=== PATIENT | male | born 1940 | race Caucasian/White ===

== ENCOUNTER → 2019-08-21 13:57 | Outpatient (BNVA) | payer MEDICARE, SELFPAY | PROVIDERS: Family Provider Family Medicine; PCP Family Medicine | DX: I48.91 Unspecified atrial fibrillation (principal) | CPT/HCPCS: 85610 ==

== ENCOUNTER → 2019-09-23 10:14 | Outpatient (BNVA) | payer MEDICARE, SELFPAY | PROVIDERS: Family Provider Family Medicine; PCP Family Medicine; Visit Provider Internal Medicine Cardiovascular Disease | DX: I48.91 Unspecified atrial fibrillation (principal) | CPT/HCPCS: 85610 ==

== ENCOUNTER → 2019-10-01 11:19 | Outpatient (BNVA) | payer MEDICARE, SELFPAY | PROVIDERS: Family Provider Family Medicine; PCP Family Medicine; Visit Provider Internal Medicine Cardiovascular Disease | DX: I48.91 Unspecified atrial fibrillation (principal) | CPT/HCPCS: 85610 ==

== ENCOUNTER → 2020-06-28 10:09 | Outpatient (BNVA) | payer MEDICARE, SELFPAY | PROVIDERS: Family Provider Family Medicine; PCP Family Medicine; Visit Provider Internal Medicine | DX: Z79.01 Long term (current) use of anticoagulants (principal); I48.91 Unspecified atrial fibrillation | CPT/HCPCS: 85610 ==

== ENCOUNTER → 2020-07-07 10:09 | Outpatient (BNVA) | payer MEDICARE, SELFPAY | PROVIDERS: Family Provider Family Medicine; PCP Family Medicine; Visit Provider Internal Medicine | DX: I48.91 Unspecified atrial fibrillation (principal); Z79.01 Long term (current) use of anticoagulants | CPT/HCPCS: 85610 ==

== ENCOUNTER 2021-09-01 12:00 | Outpatient (CLI) | payer MEDICARE, SELFPAY ==
[2021-09-01 14:43] LABS: Reticulocyte % 1.9 % (0.5-2.0)
[2021-09-01 14:46] LABS: Basophils % 0.8 %; Eosinophils # 0.1 10^3/uL (0.0-0.8); Eosinophils % 1.3 %; Hematocrit 29.6 % (42.0-52.0); Hemoglobin 9.2 g/dL (11.7-16.6); Lymphocytes # 2.1 10^3/uL (0.8-4.8); Lymphocytes % 44.8 %; Mean Corpuscular HGB Conc 31.1 g/dL (30.0-36.0); Mean Corpuscular Hemoglobin 28.9 pg (28.0-34.0); Mean Corpuscular Volume 93.1 fl (80-94); Mean Platelet Volume 11.9 fL (7.4-10.4); Monocytes # 0.4 10^3/uL (0.2-0.9); Monocytes % 7.6 %; Neutrophils # 2.14 10^3/uL (1.8-7.7); Neutrophils % 45.3 %; Nucleated Red Blood Cells % 0 %; Platelet Count 127 10^3/cmm (130-400); Red Blood Count 3.18 10^6/uL (4.1-5.3); Red Cell Distribution Width 18.3 % (12.1-15.1); White Blood Count 4.7 10^3/uL (4.0-10.0)
[2021-09-01 15:22] LABS: Slide Review Slide Review Perform
[2021-09-01 15:26] LABS: Erythrocyte Sedimentation Rate 14 mm/hr (0-10)
--- NOTE | 2021-09-01 17:42 | ONC CON_ITS ---
Dr. Torrez New Patient Note Patient: Juan J Fuller Unit #: [id number]: 1940 Dicatated By: Rafael Torrez M.D.Date of Visit: Sep 01, 2021 Onc MED New Patient/Consult Referring Physician: Dr. Rufino Whaley M.D. Chief Complaint: Anemia. History of Present Illness: This is an 81-year-old man with moderately severe anemia. This patient has hypertension and coronary artery disease. He has associated ischemic cardiomyopathy, atrial fibrillation, and congestive heart failure. On his follow-up visit with Dr. Whaley in July he complained of increased weakness/fatigue. His CBC showed moderately severe anemia with hemoglobin 9.0 g and hematocrit 27.4%. The red cell indices were normal. The white blood cell count was low at 2900 with the differential showing 34% neutrophils, 52% lymphocytes, 10% monocytes, 1% eosinophils, and 1% basophil's. The platelet count was normal at 181,000. His B12 level was normal at 883 pg/mL. He has previously had mild anemia. In reviewing his records in [facility], his prior CBCs dating back to 2012 had consistently shown hemoglobin in the range of 11 to 12 g. On a previous study from October 2008 it was normal at 14.7 g. His most recent echocardiogram available in [facility] was done in February 2016. It showed an estimated left ventricular ejection fraction of 35 to 40%. He says his energy is not very good, and he feels that it has been getting worse. He is still able to do some light work. His ECOG score is 1. His appetite is not what it used to be. His weight is down a few pounds. He occasionally feels hot, and he thinks he has had fever, though it has not been documented. He has had some sweating at night, but not a lot, and only about once a week. He says his breathing is pretty good, though he is sometimes short of breath. He has just occasional cough. He does not complain of chest pain. He has no GI complaints other than some acid reflux. He takes Lanette-Barto as needed. Bladder function has been okay, though he says he occasionally has blood in the urine. He has no significant joint or bone pain. He does not complain of headache. He sometimes has dizziness. He has no focal neurologic symptoms. Past Medical History: His medical history includes anemia, atrial fibrillation, coronary artery disease, gastroesophageal reflux disease, hypertension, hypothyroidism, ischemic cardiomyopathy, mitral regurgitation, and pulmonary hypertension. Past Surgical History: His only srugery was a consists of coronary artery bypass in 2008. Medications: Euthyrox 1 Tablet (of 75 mcg) Oral daily, Furosemide 1 Tablet (of 40 mg) Oral daily, Metoprolol Tartrate 1 Tablet (of 50 mg) Oral b.i.d. Allergies: Meperidine HCl Social History: Mr. Fuller is . He is a non-smoker. He does not drink alcohol. Family History: He does not know what happened to his father. His mother in the custodial. He thinks she just wore out . He had 2 brothers. He thinks 1 had heart disease. He had 1 sister who apparently of cancer. Review Of Symptoms: Constitutional - He has weakness/fatigue, and his energy has been declining. He is still able to do some light work. Appetite is not what it used to be. His weight recently has been down a few pounds. He thinks he may have fever occasionally, as he sometimes feels hot. He has some night sweating, but not a lot, and only about once a week. ECOG score is 1, Eyes - No change in vision, ENMT - No hearing loss or tinnitus. No sinus congestion/drainage. No mouth sores. No sore throat or difficulty swallowing, Hematologic/Lymphatic - No abnormal bruising, Respiratory - His breathing is pretty good, but he is sometimes short of breath. He has just occasional cough. No pleuritic pain or hemoptysis, Cardiovascular - No angina pain. No palpitations, Gastrointestinal - No nausea or vomiting. He has some acid reflux, which he manages with Lanette-Barto as needed. No diarrhea or constipation. No blood in the stool or black stools, Genitourinary (M) - No dysuria. No urinary frequency. No urgency or incontinence. He occasionally has a little blood in the urine, Musculoskeletal - No significant joint or bone pain, Integumentary - No skin rash or other skin changes, Neurologic - No headache. He sometimes has dizziness. No numbness or tingling. No other focal neurologic symptoms, Psychiatric - No anxiety or depression. He occasionally takes a sleeping pill. Vital Signs: Performed on Sep 01, 2021 14:16: 5, 0, 24.11, 1.94 sq.m, 70 in, 99 %, 111 /min (HIGH), 16 /min, 122/84 mm(hg), 97.4 F (LOW), and 168.0 lbs (HIGH). Physical Examination: Constitutional - He appears somewhat weak generally, Eyes - Sclerae nonicteric. Conjunctivae clear, ENMT - No lesions noted in the oral cavity, Neck - No mass or thyromegaly, Hematologic/Lymphatic - No cervical, clavicular, or axillary adenopathy, Respiratory - Lungs sound clear with good air movement bilaterally, Cardiovascular - Heart rhythm is regular. There is no murmur, gallop, or rub noted, Abdomen - Soft and non-tender. Liver and spleen are not enlarged. There is no abdominal mass or ascites noted and there is no inguinal adenopathy, Back/Spine - No spine or CVA tenderness noted, Extremities - No edema. I am not able to palpate pedal pulses, Integumentary - No rashes. No suspicious skin lesions noted, Neurologic - No focal neurologic deficits noted. Problem List: 1. Moderately severe anemia and neutropenia. Etiology is uncertain. 2. Hypertension. 3. Coronary artery disease with previous coronary artery bypass surgery. 4. Ischemic cardiomyopathy/congestive heart failure. 5. Atrial fibrillation. 6. Pulmonary hypertension. 7. Hypothyroidism. 8. GERD. Problems Addressed with this Encounter and Plan: Patient with mild anemia of fairly longstanding duration presents now with moderately severe anemia and neutropenia. Etiology is uncertain, but with his B12 level being normal the clinical picture is most consistent with a myelodysplastic syndrome. The laboratory findings were reviewed with the patient and we discussed the clinical implications. He will have additional laboratory studies today to include CBC, comprehensive metabolic profile, reticulocyte count, LDH level, haptoglobin level, serum iron studies and ferritin, sed rate, serum protein electrophoresis, and serum free light chain assay. I also will check an erythropoietin level, and I will review the blood smear. He will have further evaluation as indicated. I anticipate that he will need to undergo bone marrow aspiration/biopsy. Signed By: Rafael Torrez M.D. <<Signature on File>>
[2021-09-01 18:02] LABS: Alanine Aminotransferase 12 U/L (0-41); Albumin Level 3.9 g/dL (3.5-5.2); Alkaline Phosphatase 115 IU/L (40-130); Anion Gap 20.5 (5-19); Aspartate Amino Transferase 25 U/L (0-40); Blood Urea Nitrogen 16 mg/dL (8-23); Calcium 8.4 mg/dL (8.5-10.5); Carbon Dioxide 20 mmol/L (22-29); Chloride 99 mmol/L (98-107); Ferritin 639 ng/mL (30-400); Globulin 3.8 g/dL (1.3-4.6); Glucose 98 mg/dL (65-115); Iron 46 ug/dL (59-158); Lactate Dehydrogenase 248 U/L (135-225); Osmolality Calculated 281 mOsm/kg (285-295); Percent Saturation 21.4 % (20-50); Potassium 4.5 mmol/L (3.5-5.1); Sodium 135 mmol/L (136-145); Thyroid Stimulating Hormone 4.86 uIU/mL (0.27-4.20); Total Bilirubin 0.7 mg/dL (0.15-1.2); Total Iron Binding Capacity 214 mcg/dl; Total Protein 7.7 g/dL (6.6-8.7); Unsaturated Iron Binding 168 ug/dL (112-347)
[2021-09-01 20:03] LABS: LAB Peripheral Smear Sent for Review
[2021-09-02 12:13] LABS: PROTEIN, TOTAL 7.7 g/dL (6.1-8.1)
[2021-09-02 14:22] LABS: KAPPA LIGHT CHAIN, FREE, SERUM 136.1 mg/L (3.3-19.4); KAPPA/LAMBDA LIGHT CHAINS FREE 1.78 (0.26-1.65); LAMBDA LIGHT CHAIN, FREE, SERU 76.3 mg/L (5.7-26.3)
[2021-09-02 14:48] LABS: Erythropoietin 54.4 mIU/mL (2.6-18.5)
[2021-09-05 10:03] LABS: ALBUMIN 3.9 g/dL (3.8-4.8); ALPHA 1 GLOBULIN 0.4 g/dL (0.2-0.3); ALPHA 2 GLOBULIN 0.7 g/dL (0.5-0.9); BETA 1 GLOBULIN 0.4 g/dL (0.4-0.6); BETA 2 GLOBULIN 0.5 g/dL (0.2-0.5); GAMMA GLOBULIN 1.8 g/dL (0.8-1.7)
== END 2021-09-01 12:01 | disposition home or self-care (01) ==
PROVIDERS: PCP Family Medicine; Visit Provider Internal Medicine Medical Oncology
DX: D64.9 Anemia, unspecified (principal); D70.9 Neutropenia, unspecified; I25.10 Atherosclerotic heart disease of native coronary artery without angina pectoris; I10 Essential (primary) hypertension; I48.91 Unspecified atrial fibrillation; I25.5 Ischemic cardiomyopathy; I27.20 Pulmonary hypertension, unspecified; K21.9 Gastro-esophageal reflux disease without esophagitis; I50.9 Heart failure, unspecified; Z95.1 Presence of aortocoronary bypass graft
CPT/HCPCS: 36415; 80053; 82668; 82728; 83010; 83540; 83550; 83615; 83883; 84155; 84165; 84443; 85025; 85045; 85651; 99205

== ENCOUNTER 2021-11-04 10:04 | Outpatient (CLI) | payer MEDICARE, SELFPAY ==
--- NOTE | 2021-11-04 11:25 | ONC CON_ITS ---
Dr. Torrez New Patient Note Patient: Juan J Fuller Unit #: [id number]: 1940 Dicatated By: Rafael Torrez M.D.Date of Visit: Nov 04, 2021 Onc MED New Patient/Consult Referring Physician: Dr. Rufino Whaley M.D. Chief Complaint: Anemia. History of Present Illness: This is an 81-year-old man with moderately severe anemia. This patient has hypertension and coronary artery disease. He has associated ischemic cardiomyopathy, atrial fibrillation, and congestive heart failure. On his follow-up visit with Dr. Whaley in July he complained of increased weakness/fatigue. His CBC showed moderately severe anemia with hemoglobin 9.0 g and hematocrit 27.4%. The red cell indices were normal. The white blood cell count was low at 2900 with the differential showing 34% neutrophils, 52% lymphocytes, 10% monocytes, 1% eosinophils, and 1% basophil's. The platelet count was normal at 181,000. His B12 level was normal at 883 pg/mL. I had seen him initially on 09/01/2021. In reviewing his records in [facility], he had previously been mildly anemic with his prior CBCs dating back to 2012 consistently showing hemoglobin in the range of 11 to 12 g. On a previous study from October 2008 it was normal at 14.7 g. His most recent echocardiogram available in [facility] was done in February 2016. It showed an estimated left ventricular ejection fraction of 35 to 40%. His laboratory studies on 09/01/2021 included CBC showing hemoglobin 9.2 g with hematocrit 29.6%. The red cell indices were normal. The white blood cell count was 4700 with absolute neutrophil count 2100. The platelet count was slightly low at 127,000. LDH was slightly elevated at 248/220 5U/L. Haptoglobin was normal 127 mg/L. Sed rate was normal at 14 mm/h. Comprehensive metabolic profile showed elevated BUN and creatinine at 16 and 1.5 mg/dL. Bilirubin and liver enzymes were normal. The serum iron studies showed borderline low transferrin saturation at 21.4% with ferritin elevated at 639 ng/mL. Erythropoietin level was mildly elevated at 54.4 mIU/mL. There was no monoclonal protein detected on serum or urine protein electrophoresis. TSH was slightly elevated at 4.86 ???IU/mL. He is seen now for a follow-up visit. He says his energy is not what it used to be. He is able to do light work at home. ECOG score is 1. He has good appetite. He has not had fever. He occasionally has sweating. He has not had sore mouth or throat. He has just occasional cough. He does not complain of shortness of breath or chest pain. He has no GI or complaints. He has no significant joint or bone pain. He does not complain of headache or dizziness, and he has no focal neurologic symptoms. He does not report any abnormal bruising or bleeding. Past Medical History: His medical history includes anemia, atrial fibrillation, coronary artery disease, gastroesophageal reflux disease, hypertension, hypothyroidism, ischemic cardiomyopathy, mitral regurgitation, and pulmonary hypertension. Past Surgical History: His only srugery was a coronary artery bypass in 2008. Medications: Euthyrox 1 Tablet (of 75 mcg) Oral daily, Furosemide 1 Tablet (of 40 mg) Oral daily, Metoprolol Tartrate 1 Tablet (of 50 mg) Oral b.i.d. Allergies: Meperidine HCl Social History: Mr. Fuller is . He is a non-smoker. He does not drink alcohol. Family History: He does not know what happened to his father. His mother in the prison. He thinks she just wore out . He had 2 brothers. He thinks 1 had heart disease. He had 1 sister who apparently of cancer. Vital Signs: Performed on Nov 04, 2021 10:15: 7, 0, 22.90, 1.90 sq.m, 70.00 in, 98 %, 61 /min, 18 /min, 105/70 mm(hg), 97.8 F (LOW), and 159.6 lbs (LOW). Physical Examination: Constitutional - He appears somewhat weak generally, Eyes - Sclerae nonicteric. Conjunctivae clear, ENMT - No lesions noted in the oral cavity, Hematologic/Lymphatic - No cervical, clavicular, or axillary adenopathy, Respiratory - Lungs sound clear with good air movement bilaterally, Cardiovascular - Heart rhythm is regular. There is no murmur, gallop, or rub noted, Abdomen - Soft and non-tender. Liver and spleen are not enlarged. There is no abdominal mass or ascites noted and there is no inguinal adenopathy, Extremities - Slight edema, Neurologic - No focal neurologic deficits noted. Problem List: 1. Pancytopenia with moderately severe anemia, mild neutropenia, and mild thrombocytopenia. Etiology is uncertain. 2. Hypertension. 3. Coronary artery disease with previous coronary artery bypass surgery. 4. Ischemic cardiomyopathy/congestive heart failure. 5. Atrial fibrillation. 6. Pulmonary hypertension. 7. Hypothyroidism. 8. GERD. Problems Addressed with this Encounter and Plan: Patient with pancytopenia which includes moderately severe anemia, mild neutropenia, and mild thrombocytopenia. He had pre-existing mild anemia of fairly long duration. The cause is uncertain, but the clinical presentation is suspicious for myelodysplastic syndrome. Given the findings, he was recommended to undergo bone marrow aspiration/biopsy. He is now agreeable to having the procedure, and it has been tentatively scheduled for next week. Signed By: Rafael Torrez M.D. <<Signature on File>>
[2021-11-04 11:40] LABS: SARS Covid-2 Antigen Negative (Negative)
== END 2021-11-04 10:05 | disposition home or self-care (01) ==
PROVIDERS: PCP Family Medicine; Visit Provider Internal Medicine Medical Oncology
DX: D61.818 Other pancytopenia (principal); D70.9 Neutropenia, unspecified; D69.6 Thrombocytopenia, unspecified; I10 Essential (primary) hypertension; I25.10 Atherosclerotic heart disease of native coronary artery without angina pectoris; I42.9 Cardiomyopathy, unspecified; I48.91 Unspecified atrial fibrillation; E03.9 Hypothyroidism, unspecified; K21.9 Gastro-esophageal reflux disease without esophagitis; I50.9 Heart failure, unspecified; Z95.1 Presence of aortocoronary bypass graft; Z79.899 Other long term (current) drug therapy
CPT/HCPCS: 87426; 99214

== ENCOUNTER 2021-11-07 10:50 | Day surgery (SDC) | payer MEDICARE, SELFPAY ==
[2021-11-04 08:48] VITALS: BMI 23.6
[2021-11-07 11:11] VITALS: BP 97/72; PULSE 81; RESP 18; TEMP 36.7; O2SAT 98
[2021-11-07] MEDS: sodium chloride 0.9% 1,000 ML 30 ML IV (11:24)
--- NOTE | 2021-11-07 11:25 | ANES.PREANE2 ---
Pre-Anesthetic Assessment Height/Weight: Height 1.78 m Weight 74.843 kg Temp Pulse Resp BP Pulse Ox 98.1 F 81 18 97/72 98 11/07/21 11:11 11/07/21 11:11 11/07/21 11:11 11/07/21 11:11 11/07/21 11:11 Preop Diagnosis: Anemia Operation Date: 11/07/21 12:00 Proposed Procedures p Bone Marrow Biospy With Aspiration/D64.9(Not Applicable) - Vinnie Pantoja MD Was Beta Stephen taken within 24 hours: N/A Last intake: Intake Last Liquid Date 11/06/21 Last Liquid Time 22:00 Last Solid Date 11/06/21 Last Solid Time 08:00 Social No alcohol and No tobacco Exam alert, oriented x 3, clear to auscultation bilaterally and regular rate & rhythm Airway Submandibular: within normal limits Cervical ROM: within normal limits Mallampati: Class II Dentition: full Comments: Comments: Implants top History/ROS No significant history except as noted and No significant complaints Pulmonary Pulmonary HTN CV/HEM Atrial Fibrillation and Coronary Artery Disease (Ischemic cardiomyopathy) None reported GI None reported Metabolic Thyroid Disease [facility] [place] None reported Neuropsych None reported Anesthetic Plan ASA status: 4 Anesthesia: Anesthesia Evaluation and MAC Risk of > 500 ml blood loss (7ml/kg in children): No Medications/Allergies Home Medications Medication Instructions Recorded Confirmed Last Taken Type levothyroxine 75 mcg capsule 75 mcg PO DAILY 10/13/19 11/04/21 Unknown History metoprolol tartrate 50 mg tablet 50 mg PO DAILY #90 tab 12/28/20 11/04/21 Unknown Rx furosemide 40 mg tablet 40 mg PO DAILY PRN #90 tab 10/03/21 11/04/21 Unknown Rx cvykquqo-nff-egaul acid 300 1 tab PO DAILY 11/04/21 11/04/21 Unknown History mcg-lycopene 600 mcg-lutein 300 mcg tablet (Centrum Silver Men) Allergies Allergy/AdvReac Type Severity Reaction Status Date / Time meperidine Allergy Unknown Verified 06/22/21 15:33 Current Medications Generic Name Dose Route Start Last Admin Trade Name Freq PRN Reason Stop Dose Admin Sodium Chloride 1,000 mls @ 30 mls/hr 11/07/21 10:45 11/07/21 11:24 Sodium Chloride 0.9% IV 11/08/21 10:44 30 mls/hr .Q24H LEOBARDO Administration PFSH Anesthesia Medical History Anemia Anticoagulated on Coumadin ASHD (arteriosclerotic heart disease) Atrial fibrillation HTN (hypertension) Ischemic cardiomyopathy Mitral regurgitation Pulmonary HTN Surgical History S/P CABG (coronary artery bypass graft) Family History Sister Cancer Mother Hypertension Social History Smoking and tobacco status: never smoked Second hand smoke exposure: No Alcohol intake: never Data Anesthesia Cardiac Studies: No Data to Display
[2021-11-07 11:58] LABS: Basophils % 0.5 %; Eosinophils # 0.1 10^3/uL (0.0-0.8); Eosinophils % 1.1 %; Hematocrit 28.9 % (42.0-52.0); Lymphocytes # 1.8 10^3/uL (0.8-4.8); Lymphocytes % 32.1 %; Mean Corpuscular HGB Conc 31.1 g/dL (30.0-36.0); Mean Corpuscular Volume 93.2 fl (80-94); Mean Platelet Volume 11.5 fL (7.4-10.4); Monocytes # 0.4 10^3/uL (0.2-0.9); Monocytes % 6.6 %; Neutrophils # 3.33 10^3/uL (1.8-7.7); Neutrophils % 59.3 %; Nucleated Red Blood Cells % 0 %; Platelet Count 133 10^3/cmm (130-400); White Blood Count 5.6 10^3/uL (4.0-10.0)
--- NOTE | 2021-11-07 12:29 | W.PM.OPSUD ---
Surgery/Procedure H&P Update DATE OF PROCEDURE: November 07, 2021 DATE H&P PERFORMED: 11/07/21 PREOP DIAGNOSIS: Anemia PRIMARY INDICATION FOR PROCEDURE: History of pancytopenia, now scheduled for bone marrow aspiration and biopsy, since his last visit to the clinic, patient has no new symptoms or findings PLANNED PROCEDURE: Operation Date: 11/07/21 12:00 Proposed Procedures p Bone Marrow Biospy With Aspiration/D64.9(Not Applicable) - Vinnie Pantoja MD
--- NOTE | 2021-11-07 12:49 | P.PCN_ITS ---
Bone Marrow Biopsy Bone Marrow Biopsy: I was consulted by [] office regarding bone marrow biopsy on [Normal Fuller]. Briefly, the patient is a [81] year old [Male] with [Pancytopenia]. In the Outpatient Services Department, with nursing staff and laboratory technologists in attendance, the procedure was discussed with the patient. Appropriate consent form had been signed. Appropriate alternatives, benefits and risks of procedure were discussed with the patient and he was pre- operatively assessed with a history and physical by myself and cleared for the biopsy procedure. The patient did request IV sedation and that was provided by the Anesthesia Department. Under aseptic condition right posterior iliac area was cleaned and prepped, local anesthesia was given, about 15 cc of bone marrow aspirate and core biopsy was obtained, specimen was sent for routine histopathology, flow cytometry/cytogenetics and FISH for MDS. Patient tolerated procedure well, postprocedure nursing instructions were given Thank you for allowing me to participate in this patient's care and diagnosis. Coding Level of Care Code Acute Cylinder Block Hole Reliner for Chg Fwd History Problem Focused Exam Problem Focused Medical Decision Making Straight Forward
[2021-11-07 12:57] VITALS: BP 86/52; PULSE 72; RESP 18; TEMP 36.2; O2SAT 98
[2021-11-07 13:03] VITALS: BP 94/65; PULSE 70; RESP 16; O2SAT 100
--- NOTE | 2021-11-07 14:07 | ANE.PACU2 ---
Inpatient post-anesthesia follow up: Airway intact: Yes Vital signs: Temperature 97.1 F Pulse Rate 70 Respiratory Rate 16 Blood Pressure 94/65 Pulse Oximetry 100 Oxygen Delivery Me thod Room Air Oxygen Flow Rate Fraction of Inspir ed Oxygen Hydration adequate: Yes Nausea and vomiting: No Pain level: 1 Mental status: Baseline
[2021-11-09 08:36] LABS: Leukemia Profile (BBPL) See Report; Lymphoma Profile (BBPL) See Report
[2021-11-18 11:40] LABS: Miscellaneous Test See Scanned Lab Rpt
[2021-11-18 12:14] LABS: Miscellaneous Test See Scanned Lab Rpt
== END 2021-11-07 13:30 | disposition home or self-care (01) ==
PROVIDERS: PCP Family Medicine; Visit Provider Internal Medicine Hematology & Oncology
PROC: 07DT3ZX Extraction of Bone Marrow, Percutaneous Approach, Diagnostic (ICD-10-PCS; CPT 38222; principal; 2021-11-07 12:00)
DX: D61.818 Other pancytopenia (principal); D64.9 Anemia, unspecified; I27.20 Pulmonary hypertension, unspecified; I48.91 Unspecified atrial fibrillation; I25.10 Atherosclerotic heart disease of native coronary artery without angina pectoris; Z79.01 Long term (current) use of anticoagulants; I10 Essential (primary) hypertension
CPT/HCPCS: 36415; 38222; 85025; 88184; 88185; 88237; 88264; 88305; 88311; 88367; 88374; J2704; J7030

== ENCOUNTER 2021-11-24 12:43 | Outpatient (CLI) | payer MEDICARE, SELFPAY ==
[2021-11-24 13:19] LABS: Basophils % 0.5 %; Eosinophils % 0.4 %; Hematocrit 26.5 % (42.0-52.0); Hemoglobin 8.1 g/dL (11.7-16.6); Lymphocytes # 1.2 10^3/uL (0.8-4.8); Lymphocytes % 20.7 %; Mean Corpuscular HGB Conc 30.6 g/dL (30.0-36.0); Mean Corpuscular Hemoglobin 28.9 pg (28.0-34.0); Mean Corpuscular Volume 94.6 fl (80-94); Monocytes # 0.3 10^3/uL (0.2-0.9); Monocytes % 5.8 %; Neutrophils # 4.01 10^3/uL (1.8-7.7); Neutrophils % 72.2 %; Nucleated Red Blood Cells % 0 %; Platelet Count 159 10^3/cmm (130-400); Red Cell Distribution Width 17.8 % (12.1-15.1); White Blood Count 5.6 10^3/uL (4.0-10.0)
[2021-11-24 13:48] LABS: Alanine Aminotransferase 25 U/L (0-41); Albumin Level 3.8 g/dL (3.5-5.2); Alkaline Phosphatase 296 IU/L (40-130); Anion Gap 17.1 (5-19); Aspartate Amino Transferase 25 U/L (0-40); Blood Urea Nitrogen 41 mg/dL (8-23); Calcium 9.6 mg/dL (8.5-10.5); Carbon Dioxide 23 mmol/L (22-29); Chloride 94 mmol/L (98-107); Glucose 125 mg/dL (65-115); Osmolality Calculated 280 mOsm/kg (285-295); Potassium 5.1 mmol/L (3.5-5.1); Sodium 129 mmol/L (136-145); Total Protein 7.8 g/dL (6.6-8.7)
[2021-11-24 14:58] LABS: Specific Gravity, Urine 1.015 (1.005-1.030); Urine Appearance Cloudy (CLEAR); Urine Color Orange (Yellow); pH Urine 6 (5-7)
[2021-11-24 14:59] LABS: Bilirubin Urine 1+ (Negative); Blood Urine 3+ (Negative); Glucose Urine UA Norm (Normal); Ketones Urine Negative (Negative); Leukocyte Esterase Urine 2+ (Negative); Nitrate Urine Positive (Negative); Protein Urine 3+ (Negative); Urobilinogen Urine 4 mg/dL (Negative)
[2021-11-24 15:21] LABS: Bacteria Urine TNTC /hpf; RBC Urine TOO NUMEROUS TO CNT /hpf (0-2); Renal Epithelial Cells Urine N /hpf; Squamous Epithelial Cell Urine 0-4 /hpf (0-5); WBC Urine 40-55 /hpf (0-5)
[2021-11-24 15:22] LABS: Add Urine Culture? Yes
--- NOTE | 2021-11-24 19:02 | ONC FU_ITS ---
Dr. Torrez Patient Follow-Up Note Patient: Juan J Fuller Unit #: [id number]: [id number] Dicatated By: Rafael Torrez M.D.Date of Visit:Nov 24, 2021 Onc Med Follow-up/Prog Note Chief Complaint: Anemia. History of Present Illness: This is an 81-year-old man with moderately severe anemia. This patient has hypertension and coronary artery disease. He has associated ischemic cardiomyopathy, atrial fibrillation, and congestive heart failure. On his follow-up visit with Dr. Whaley in July he complained of increased weakness/fatigue. His CBC showed moderately severe anemia with hemoglobin 9.0 g and hematocrit 27.4%. The red cell indices were normal. The white blood cell count was low at 2900 with the differential showing 34% neutrophils, 52% lymphocytes, 10% monocytes, 1% eosinophils, and 1% basophil's. The platelet count was normal at 181,000. His B12 level was normal at 883 pg/mL. I had seen him initially on 09/01/2021. In reviewing his records in [facility], he had previously been mildly anemic with his prior CBCs dating back to 2012 consistently showing hemoglobin in the range of 11 to 12 g. On a previous study from October 2008 it was normal at 14.7 g. His most recent echocardiogram available in [facility] was done in February 2016. It showed an estimated left ventricular ejection fraction of 35 to 40%. His laboratory studies on 09/01/2021 included CBC showing hemoglobin 9.2 g with hematocrit 29.6%. The red cell indices were normal. The white blood cell count was 4700 with absolute neutrophil count 2100. The platelet count was slightly low at 127,000. LDH was slightly elevated at 248/220 5U/L. Haptoglobin was normal 127 mg/L. Sed rate was normal at 14 mm/h. Comprehensive metabolic profile showed elevated BUN and creatinine at 16 and 1.5 mg/dL. Bilirubin and liver enzymes were normal. The serum iron studies showed borderline low transferrin saturation at 21.4% with ferritin elevated at 639 ng/mL. Erythropoietin level was mildly elevated at 54.4 mIU/mL. There was no monoclonal protein detected on serum or urine protein electrophoresis. TSH was slightly elevated at 4.86 ???IU/mL. With those findings, he was recommended to undergo bone marrow aspiration/biopsy. He initially opted to defer the procedure. He was then seen for a follow-up visit on 11/04/2021, at that point he was agreeable to the procedure. He then underwent bone marrow aspiration/biopsy on 11/07/2021. The bone marrow showed normal cellularity estimated at 10 to 30%. There were no overt dyspoietic or megaloblastic changes seen. There was no evidence of an infiltrative process. Iron stores were normal to mildly increased. There were no ring sideroblasts identified. There was no significant reticulin fibrosis. The standard cytogenetic study was normal and the FISH panel for MDS was unrevealing. Overall, the bone marrow findings were nondiagnostic. He is seen for a follow-up visit. He is feeling noticeably worse. He complains that he is very weak and tired, and he is showing decline in his activity. His ECOG score is 2. He says that he is eating, but he has been losing weight. He has lost in the range of 35 to 40 pounds in the past year. He thinks he has been having a little fever, as his head sometimes feels hot in the afternoon. He occasionally has sweating at night. He has not had sore mouth or throat. He has been having some shortness of breath. He does complained of cough or chest pain. He has not been having abdominal pain. He occasionally has nausea, and he does report having some acid reflux. Bowel function has been okay. He is having urinary frequency and some dysuria, and he also sometimes has blood in his urine. He has no significant joint or bone pain. He does not complain of headache or dizziness, and he has no focal neurologic symptoms. Medications: Euthyrox 1 Tablet (of 75 mcg) Oral daily, Furosemide 1 Tablet (of 40 mg) Oral daily, Metoprolol Tartrate 1 Tablet (of 50 mg) Oral daily Allergies: Meperidine HCl Vital Signs: Performed on Nov 24, 2021 15:10 Height - 70.00 in Weight - 149.6 lbs (LOW) BSA - 1.85 sq.m BMI - 21.47 Temperature - 97.6 F (LOW) Pulse - 72 /min Respiration - 16 /min BP - 98/62 mm(hg) O2 Sat - 99 % Pain - 0 Fatigue - 9 Physical Examination: Constitutional - He appears generally weak, Eyes - Sclerae nonicteric. Conjunctivae clear, ENMT - No lesions noted in the oral cavity, Hematologic/Lymphatic - No cervical, clavicular, or axillary adenopathy, Respiratory - Lungs sound clear, Cardiovascular - Heart rhythm is irregular. The rate is slightly high. There is no murmur, gallop, or rub noted, Abdomen - Soft. Liver and spleen are not enlarged. There is no abdominal mass or ascites noted and there is no inguinal adenopathy, Extremities - No edema, Neurologic - No focal neurologic deficits noted. Lab/Imaging: Test performed on Nov 24, 2021 13:02 Sodium 129 mmol/L TSH 4.30 uIU/mL Potassium 5.1 mmol/L Chloride 94 mmol/L CO2 23 mmol/L Anion Gap 17.1 BUN 41 mg/dL Creatinine 2.5 mg/dL Cr Clearance (Est) 22.24 mL/min Glucose 125 mg/dL Osmolality - Calculated 280 mOsm/kg Calcium 9.6 mg/dL Protein, Total 7.8 g/dL Albumin 3.8 g/dL Globulin 4.0 g/dL Bilirubin, Total 1.0 mg/dL ALT (SGPT) 25 U/L AST (SGOT) 25 U/L Alkaline Phosphatase 296 IU/L WBC 5.6 10 3/uL RBC 2.80 10 6/uL HGB 8.1 g/dL HCT 26.5 % MCV 94.6 fl MCH 28.9 pg MCHC 30.6 g/dL RDW 17.8 % Platelet Count 159 10 3/cmm MPV 12.0 fL Neutrophils 4.01 10 3/uL Lymphocytes 1.2 10 3/uL Monocytes 0.3 10 3/uL Eosinophils 0.0 10 3/uL Basophils 0.0 10 3/uL Neutrophil % 72.2 % Lymphocyte % 20.7 % Monocyte % 5.8 % Eosinophil % 0.4 % Basophils % 0.5 % NRBC % 0 % PSA 1.080 ng/mL Test performed on Nov 24, 2021 00:00 Ua Color [place] Ua Appearance Cloudy Ua pH 6 Ua Specific [place] 1.015 Ua Glucose Norm Ua Ketones Negative Ua Protein 3+ Ua Blood 3+ Ua Bilirubin 1+ Ua Urobilinogen 4 mg/dL Ua Nitrites Positive Ua Leukocyte Esterase 2+ Ua Micro: Trans Epith Cells NONE /hpf Ua Micro: Renal Epith Cells N /hpf Ua Micro: WBC 40-55 /hpf Ua Micro: RBC TOO NUMEROUS TO CNT /hpf Ua Micro: Squam Epith Cells 0-4 /hpf Ua Micro: Bacteria TNTC /hpf Ua Micro: Mucous NONE /hpf Problem List: 1. Pancytopenia with moderately severe anemia, mild neutropenia, and mild thrombocytopenia. Etiology is uncertain. 2. Hypertension. 3. Coronary artery disease with previous coronary artery bypass surgery. 4. Ischemic cardiomyopathy/congestive heart failure. 5. Atrial fibrillation. 6. Pulmonary hypertension. 7. Hypothyroidism. 8. GERD. Problems Addressed with this Encounter and Plan: Patient with pancytopenia which includes moderately severe anemia, mild neutropenia, and mild thrombocytopenia. He had pre-existing mild anemia of fairly long duration. The cause is uncertain, but the clinical presentation is suspicious for myelodysplastic syndrome. Given the findings, he was recommended to undergo bone marrow aspiration/biopsy. After some delay he did opt to proceed with the procedure, which was done on 11/07/2021. The bone marrow aspiration/biopsy, however, showed no diagnostic abnormalities. At this point there has been further decline in the hemoglobin to 8.1 g. Along with that he has showing a significant further decline in his performance status. His laboratory studies now show a significant decline in renal function with his creatinine increased to 2.5 mg/dL. There is also significant elevation of the alkaline phosphatase at 296/130 IU/L. His additional studies include normal PSA at 1.080 ng/mL. His urinalysis does confirm hematuria. Overall, the findings now are suggestive of anemia due to underlying malignancy, possibly a bladder cancer. He is scheduled to have a noncontrast CT of the abdomen/pelvis, annual then have further evaluation as indicated. Signed By: Rafael Torrez M.D. <<Signature on File>>
== END 2021-11-24 12:44 | disposition home or self-care (01) ==
LOC: ONCMED 12:46
PROVIDERS: Visit Provider Internal Medicine Medical Oncology
DX: D61.818 Other pancytopenia (principal); N17.9 Acute kidney failure, unspecified; E03.9 Hypothyroidism, unspecified; D70.9 Neutropenia, unspecified; D69.6 Thrombocytopenia, unspecified; I10 Essential (primary) hypertension; I25.10 Atherosclerotic heart disease of native coronary artery without angina pectoris; I42.9 Cardiomyopathy, unspecified; I48.91 Unspecified atrial fibrillation; K21.9 Gastro-esophageal reflux disease without esophagitis; I50.9 Heart failure, unspecified; Z95.1 Presence of aortocoronary bypass graft; Z79.899 Other long term (current) drug therapy
CPT/HCPCS: 36415; 80053; 81001; 84153; 84443; 85025; 87086; 99214

== ENCOUNTER 2021-11-25 10:53 | Outpatient (CLI) | payer MEDICARE, SELFPAY ==
--- NOTE | 2021-11-25 11:19 | CT_ITS ---
WS: [id number] CT ABDOMEN PELVIS TECHNIQUE: Noncontrast CT of the abdomen and pelvis with coronal and sagittal reformatted images. CLINICAL INFORMATION: RENAL FAILURE COMPARISON: None. DLP: 912.[address] scans at [facility] use at least one of these dose optimization techniques: automated e xposure control; mA and/or kV adjustment per patient size (includes targeted exams where dose is matc hed to clinical indication); or iterative reconstruction. FINDINGS: Lobulated nodular soft tissue involving th dorsal lateral bladder eccentric to the LEFT extending to the bladder dome. This extends to the LEFT UVJ with obstruction of the LEFT ureter. Findings most com patible with bladder carcinoma. Moderate LEFT hydronephrosis. Multiple ill-defined low-attenuation lesions in the liver suspicious suspicious for metastatic diseas e. Dense cholelithiasis. Tortuous gallbladder neck. This can be followed up with ultrasound. No intrahep atic biliary ductal dilatation. Tiny RIGHT pleural effusion. Patchy infiltrate in the RIGHT lower lobe along the fissure. Soft tissue nodule in this area along the RIGHT fissure adjacent to the heart measuring 2.5 x 1.8 cm. Metastatic disease not excluded. Noncalcified nodule RIGHT lower lobe along the diaphragm measuring 7 mm. Pleur al thickening partially visualized in the RIGHT middle lobe. * Adrenal glands are normal. Noncontrast pancreas appears normal. Normal GE junction. Tiny fat-conta ining umbilical hernia. Prominent prostate measuring 3.0 x 4.0 CM. Aortic calcification. Normal calib er abdominal aorta. Bulky periaortic lymphadenopathy compatible with metastatic disease measuring up to 2.5 CM. Bilateral iliac lymphadenopathy. Bilateral internal iliac lymphadenopathy in the pelvis. S oft tissue induration in the pelvis about the bladder. * Sigmoid diverticulosis. Small amount of fluid or necrotic lymph node along the RIGHT proximal ingu inal canal. Fat-containing LEFT inguinal hernia. CT/CT abdomen pelvis wo con [id number] IMPRESSION: Evaluation limited due to lack of IV contrast 1. Diffuse nodular bladder wall nodularity most likely due to bladder carcinom a. This results in obstruction of the LEFT UVJ with moderate LEFT hydronephrosi s. 2. Moderate LEFT hydronephrosis with ureteral dilatation to the UVJ. 3. No hydronephrosis in RIGHT kidney. 4. Numerous bulky periaortic metastatic lymph nodes extending into the iliac c hains bilaterally deep pelvis. 5. Numerous low-attenuation ill-defined lesions in the liver suspicious for me tastatic disease the largest measuring 2.5 CM. 6. Soft tissue lesion partially visualized in the RIGHT lower lobe along the f issure adjacent to the heart measuring 2.5 x 1.8 cm suspicious for metastatic d isease with numerous surrounding infiltrates. Pleural nodularity in the RIGHT m iddle lobe partially visualized. Recommend chest CT in further evaluation. 7. Tiny RIGHT pleural effusion. 8. Cholelithiasis. This can be further evaluated with ultrasound. Discussed with Rafael Torrez MD at 11/25/2021 5:00PM.
== END 2021-11-25 10:54 | disposition home or self-care (01) ==
LOC: RAD 10:56
PROVIDERS: PCP Family Medicine; Visit Provider Internal Medicine Medical Oncology
DX: N19 Unspecified kidney failure (principal); N13.30 Unspecified hydronephrosis; J90 Pleural effusion, not elsewhere classified; K80.20 Calculus of gallbladder without cholecystitis without obstruction
CPT/HCPCS: 74176

== ENCOUNTER 2021-11-28 10:40 | Outpatient (CLI) | payer MEDICARE, SELFPAY ==
[2021-11-28 11:38] LABS: Alanine Aminotransferase 17 U/L (0-41); Albumin Level 3.6 g/dL (3.5-5.2); Alkaline Phosphatase 225 IU/L (40-130); Aspartate Amino Transferase 24 U/L (0-40); Blood Urea Nitrogen 39 mg/dL (8-23); Calcium 9.2 mg/dL (8.5-10.5); Carbon Dioxide 22 mmol/L (22-29); Chloride 96 mmol/L (98-107); Globulin 4.4 g/dL (1.3-4.6); Glucose 112 mg/dL (65-115); Osmolality Calculated 278 mOsm/kg (285-295); Sodium 129 mmol/L (136-145); Total Bilirubin 1.1 mg/dL (0.15-1.2)
[2021-11-28] MEDS: sodium chloride 0.9% 1,000 ML 999 ML IV (12:45)
[2021-11-28 12:52] LABS: Basophils % 0.7 %; Eosinophils % 0.3 %; Hemoglobin 7.8 g/dL (11.7-16.6); Lymphocytes % 34.1 %; Mean Corpuscular HGB Conc 31.2 g/dL (30.0-36.0); Mean Corpuscular Hemoglobin 29.2 pg (28.0-34.0); Mean Corpuscular Volume 93.6 fl (80-94); Mean Platelet Volume 12.5 fL (7.4-10.4); Monocytes # 0.4 10^3/uL (0.2-0.9); Monocytes % 5.8 %; Neutrophils # 3.52 10^3/uL (1.8-7.7); Neutrophils % 58.8 %; Nucleated Red Blood Cells % 0 %; Platelet Count 128 10^3/cmm (130-400); Red Blood Count 2.67 10^6/uL (4.1-5.3); Red Cell Distribution Width 17.9 % (12.1-15.1)
== END 2021-11-28 10:41 | disposition home or self-care (01) ==
PROVIDERS: PCP Family Medicine; Visit Provider Internal Medicine Medical Oncology
DX: D61.818 Other pancytopenia (principal); D70.9 Neutropenia, unspecified; D69.6 Thrombocytopenia, unspecified; I10 Essential (primary) hypertension; I25.10 Atherosclerotic heart disease of native coronary artery without angina pectoris; I42.9 Cardiomyopathy, unspecified; I48.91 Unspecified atrial fibrillation; E03.9 Hypothyroidism, unspecified; K21.9 Gastro-esophageal reflux disease without esophagitis; I50.9 Heart failure, unspecified; Z95.1 Presence of aortocoronary bypass graft; Z79.899 Other long term (current) drug therapy
CPT/HCPCS: 80053; 81003; 85025; 86850; 86900; 86920; 96360; J7030

== ENCOUNTER 2021-11-29 09:32 | Outpatient (CLI) | payer MEDICARE, SELFPAY ==
[2021-11-29] VITALS (7 sets, daily range): BP systolic 81–109; BP diastolic 50–64; PULSE 52–69; RESP 18; TEMP 36.9–37.1; O2SAT 100
[2021-11-29] MEDS: acetaminophen 325 mg Tablet 650 MG PO (10:20)
[2021-11-29] MEDS: diphenhydrAMINE 25 mg Capsule PO (10:20)
[2021-11-29] MEDS: sodium chloride 0.9% 250 ML 75 ML IV (10:20)
[2021-11-29] MEDS: FUROsemide 10 mg/mL SDV 2mL 20 MG IV (12:10)
== END 2021-11-29 09:33 | disposition home or self-care (01) ==
PROVIDERS: PCP Family Medicine; Visit Provider Internal Medicine Medical Oncology
DX: D61.818 Other pancytopenia (principal); D70.9 Neutropenia, unspecified; D69.6 Thrombocytopenia, unspecified; I10 Essential (primary) hypertension; I25.10 Atherosclerotic heart disease of native coronary artery without angina pectoris; I42.9 Cardiomyopathy, unspecified; I48.91 Unspecified atrial fibrillation; E03.9 Hypothyroidism, unspecified; K21.9 Gastro-esophageal reflux disease without esophagitis; I50.9 Heart failure, unspecified; Z95.1 Presence of aortocoronary bypass graft; Z79.899 Other long term (current) drug therapy
CPT/HCPCS: 36430; 86850; 86900; 86920; 96374; J1940; J7050; P9016

== ENCOUNTER 2021-11-30 10:15 | Observation (INO) | payer MEDICARE, SELFPAY ==
[2021-11-29 15:52] VITALS: BMI 20.9
[2021-11-30] VITALS (18 sets, daily range): BP systolic 103–134; BP diastolic 64–86; PULSE 66–93; RESP 16–18; TEMP 36.1–36.7; O2SAT 97–100
--- NOTE | 2021-11-30 | SCC_ITS ---
Procedure done: 1. Cystoscopy, transurethral section of bladder tumor large 2. Left retrograde ureteropyelogram, left ureteral stent placement (8.5 x 30 cm double-pigtail) 41.6 seconds of fluoroscopic guidance, for a cumulative dose of 6.93 mGy, was provided to Dr. Pope by the radiology department. C-arm images of the abdomen were saved for the patient's permanent record. [facility]
--- NOTE | 2021-11-30 06:02 | SC_ITS ---
WS: [id number] Exam: C-arm FL for Urology Date/Time of Exam: 11/30/2021 6:02 AM Reason For Exam: Left ureteral obstruction, bladder cancer Limited anterior-posterior C-arm images of the pelvis and upper left abdomen are submitted for evalua tion. Limited retrograde pyelography is performed. Opacification of the distal left ureter shows marked dil atation of the ureter. A small filling defect is seen in the distal left ureter and may represent a r etained stone or soft tissue nodule in the ureter. The second image depicts the superior aspect of a left retrograde the catheter in the upper left quadrant of the abdomen. No other significant finding on this limited series.
[2021-11-30] MEDS: sodium chloride 0.9% 1,000 ML 30 ML IV (06:29)
--- NOTE | 2021-11-30 06:52 | ANES.PREANE2 ---
Pre-Anesthetic Assessment Height/Weight: Height 1.8 m Weight 68.039 kg Temp Pulse Resp BP Pulse Ox 98.0 F 93 18 117/71 99 11/30/21 06:17 11/30/21 06:17 11/30/21 06:17 11/30/21 06:17 11/30/21 06:17 Preop Diagnosis: Diagnosed bladder cancer, left ureteral obstruction Operation Date: 11/30/21 07:00 Proposed Procedures p Cystoscopy 41141/66931 mod 53721/c67.9/c77.2(Not Applicable) - Claude Pope MD s Transurethral Resection Bladder Tumor(Not Applicable) - Claude Pope MD s Retrograde Pyelogram(Not Applicable) - Claude Pope MD s Ureteral Stent Placement(Left) - Claude Pope MD Familial anesthetic complications: None Was Beta Stephen taken within 24 hours: Yes Was Clonidine taken within 24 hours: N/A Last intake: Intake Last Liquid Date 11/29/21 Last Liquid Time 18:00 Last Solid Date 11/29/21 Last Solid Time 18:00 Social No alcohol and No tobacco Exam alert, oriented x 3, clear to auscultation bilaterally and regular rate & rhythm (Afib no appreciated on exam.) Airway Submandibular: within normal limits Cervical ROM: within normal limits Mallampati: Class I Dentition: chipped Comments: Comments: Missing most lower teeth Poor dentition Pulmonary PHTN CV/HEM Atrial Fibrillation, Anemia, Hypertension and Murmur S/P CABG . No stents or CP since. METS = 4 due to recent fatigue, several months ago no difficulty with exercise equivalent 3 flights of stairs. MR Cardiomyopathy Chronic Renal Insufficiency Hematuria Bladder mass Bladder obstruction Hepatic None reported GI None reported Metabolic None reported Musc/skel None reported Neuropsych None reported Anesthetic Plan ASA status: 3 (81 year old male w/ MR, CAD, S/P CABG, bladder mass w/ anemia, CKD, pHTN, afib, and hx of ischemic cardiomyopathy) Anesthesia: Anesthesia Evaluation and General Other: We discussed risk and benefits of general anesthesia including PONV, sore throat (sometimes severe), corneal abrasion, positioning and peripheral nerve injuries, life threatening allergic reaction, post operative ICU admission requiring prolonged intubation, stroke, heart attack, , and rare incidences of recall. Patient consents to proceed with general anesthesia. Risk of > 500 ml blood loss (7ml/kg in children): No Medications/Allergies Home Medications Medication Instructions Recorded Confirmed Last Taken Type levothyroxine 75 mcg capsule 75 mcg PO DAILY 10/13/19 11/29/21 11/30/21 History metoprolol tartrate 50 mg tablet 50 mg PO DAILY #90 tab 12/28/20 11/29/21 11/30/21 Rx furosemide 40 mg tablet 40 mg PO DAILY PRN #90 tab 10/03/21 11/30/21 11/28/21 Rx bhoudhxs-vvc-lfbtb acid 300 1 tab PO DAILY 11/04/21 11/30/21 11/28/21 History mcg-lycopene 600 mcg-lutein 300 mcg tablet (Centrum Silver Men) Allergies Allergy/AdvReac Type Severity Reaction Status Date / Time meperidine Allergy Unknown Verified 11/30/21 06:08 Current Medications Generic Name Dose Route Start Last Admin Trade Name Freq PRN Reason Stop Dose Admin Sodium Chloride 1,000 mls @ 30 mls/hr 11/30/21 06:15 11/30/21 06:29 Sodium Chloride 0.9% IV 12/01/21 06:14 30 mls/hr .Q24H LEOBARDO Administration PFSH Anesthesia Medical History Anemia Anticoagulated on Coumadin ASHD (arteriosclerotic heart disease) Atrial fibrillation Bladder mass HTN (hypertension) Ischemic cardiomyopathy Mitral regurgitation Pulmonary HTN Ureteral obstruction Surgical History S/P CABG (coronary artery bypass graft) Family History Sister Cancer Mother , at age 81 Hypertension Father No problems noted. Social History Smoking and tobacco status: never smoked Second hand smoke exposure: No Alcohol intake: never Marital status: Current occupational status: retired History of recent travel: No Data Anesthesia Cardiac Studies: No Data to Display
--- NOTE | 2021-11-30 06:53 | P.HPUD_ITS ---
Surgery/Procedure H&P Update DATE OF PROCEDURE: November 30, 2021 DATE H&P PERFORMED: 11/28/21 H&P UPDATE INFORMATION: I have reviewed H&P completed within last 30 days, I have examined patient prior to procedure, No changes to prior documentation and H&P is in [facility] EMR on date indicated PREOP DIAGNOSIS: Diagnosed bladder cancer, left ureteral obstruction PLANNED PROCEDURE: Operation Date: 11/30/21 07:00 Proposed Procedures p Cystoscopy 74043/23082 mod 26/61550/c67.9/c77.2(Not Applicable) - Claude Pope MD s Transurethral Resection Bladder Tumor(Not Applicable) - Claude Pope MD s Retrograde Pyelogram(Not Applicable) - Claude Pope MD s Ureteral Stent Placement(Left) - Claude Pope MD
--- NOTE | 2021-11-30 06:56 | PM.OP ---
Operative Report Date of procedure: November 30, 2021 Pre-op diagnosis: Metastatic bladder cancer, left distal ureteral obstruction Post-op diagnosis: Metastatic bladder cancer, left distal ureteral obstruction Procedure done: 1. Cystoscopy, transurethral section of bladder tumor large 2. Left retrograde ureteropyelogram, left ureteral stent placement (8.5 x 30 cm double-pigtail) Stent? Specimens removed/disposition: Bladder tumor chips Pathology: bladder tumor Surgeon: Niko Urine output: Not measured Complications: None Findings: 1. Large volume invasive appearing bladder cancer involving most of the left lateral wall, portion of the floor, portion of the anterior wall. 2. Area of resection was on the posterior floor extending 5.5 to 6 cm in diameter 3. 8.5 [place] by 30 cm double-pigtail stent was left indwelling. See body of dictation. Brief History: Mr. Fuller is a very pleasant 81-year-old white male evaluated 2 days ago for the first time for gross hematuria. Previous CT scan demonstrated a large volume soft tissue density in the bladder consistent with TCCA. He was also found to have an obstructed distal left ureter presumably from the bladder tumor. In addition he had large volume bulky lymphadenopathy the pelvic and periaortic nodes. There was evidence of liver metastasis as well. All of the above findings were discussed with the patient in detail. Cystoscopy confirmed what appeared to be invasive TCCA. Initial impression was that the left ureteral orifice was not directly involved with tumor. Conversation was had with oncology and recommendations for biopsy for systemic therapy planning was made and he is admitted now for TURBT to obtain tissue but not for complete resection. In addition the hope is to place a stent retrograde fashion rather than antegrade percutaneous nephrostomy tube to improve renal function in anticipation of systemic therapy. Obviously final decisions have not been made. Procedure: After routine preoperative evaluation examination and obtaining of informed consent he was taken to the operating suite on 11/30/2021 where general anesthesia was administered without difficulty after appropriate timeout was performed, SCDs confirmed to be functioning, preoperative antibiotics administered, beta-abdirahman protocol confirmed. Prepped and draped in usual sterile fashion in dorsolithotomy position paying careful attention to avoiding pressure points. 21 [place]ib[place] cystoscope with 30 degree lens was introduced into the urethra meatus and advanced into the bladder under videoscopy. Bladder was systematically examined. Large volume tumor as described above was identified. It was wide base invasive appearing sessile. The right ureteral orifice was normal. The left ureteral orifice was somewhat difficult to identify but eventually was discovered. Had a atypical appearance but there was no direct involvement of tumor at the orifice itself. An 8 [place] cone-tip catheter was intubated into the left ureteral orifice for a LEFT RETROGRADE URETEROPYELOGRAM. There was immediate distinct narrowing with a thin sliver of contrast extending approximately 2 cm from just inside the orifice. Just above that point there was an abrupt change in caliber of the ureter consistent with the CT scan findings. An open-ended ureteral catheter was utilized and passed just inside the bladder. A angled tipped Glidewire was then passed through the open-ended ureteral catheter and the catheter was positioned in a direction which allowed curvature to follow of the abnormal course of the ureter and thankfully the Glidewire went up through the narrowed area without difficulty into the dilated portion. The open-ended ureteral catheter was then advanced over the guidewire several inches above the narrowing of the ureter and the Glidewire was removed. A standard flexible tip guidewire was then advanced through the catheter up into the kidney. The catheter was removed. An 8.5 [place] by 30 cm double-pigtail stent was advanced over the guidewire through the cystoscope into appropriate position as confirmed via fluoroscopy and cystoscopy. Stent was confirmed to be draining. [place] sounds were then utilized to dilate the urethra and easily accommodated 30 [place]ib[place]ian. 2% lidocaine jelly was instilled into the urethra then a 25 [place]ib[place]ian well-lubricated resectoscope sheath with visual obturator in place was advanced into the bladder without difficulty. An Ellik evacuator was utilized to clear some of the clots that had formed in the bladder during the placement of the stent. It was decided to resect to obtain pathology from the easiest accessible tumor mass which was positioned on the floor of the bladder posteriorly. The gyrus bipolar system with super loop was utilized for resection. A total area of about 5.5 to 6 cm was resected deep into the bladder wall. The tumor itself was not severely vascular but the surrounding edges of the mucosa were generally oozing. The chips were removed from the bladder with an Ellik evacuator then the button probe was utilized to fulgurate the base of the tumor as well as the surrounding mucosa. All of the resection was done well away from the stent in the left ureteral orifice. On final inspection there was some mild oozing but nothing severe. The scope was removed and a 22 [place] three-way 30 cc balloon catheter was placed without difficulty. Wound had 35 cc placed in it and the catheter was irrigated and confirmed to be functioning. Light CBI was initiated. He tolerated the procedure well without complications and was awakened in the operating room and returned to the recovery room in stable condition. PLANS: 1. Anticipate discharge tomorrow possibly with or without Christianson. 2. Maintain stent to hopefully improve overall kidney function for the purposes of systemic treatment for his metastatic bladder cancer.
[2021-11-30] MEDS: levofloxacin-dextrose 5 % 500 MG/100 ML PREMIX 100 MG IV (06:57)
[2021-11-30] MEDS: lidocaine 2% Urojet 20 mL TOPICAL (07:30)
[2021-11-30] MEDS: D5-NS 0.45% + KCL 20 mEq 20 MEQ/1,000 ML BAG 50 MEQ IV (11:07)
--- NOTE | 2021-11-30 17:36 | ANE.PACU2 ---
Inpatient post-anesthesia follow up: Airway intact: Yes Vital signs: Temperature 97.0 F Pulse Rate 73 Respiratory Rate 16 Blood Pressure 134/80 Pulse Oximetry 98 Oxygen Delivery Me thod Room Air Oxygen Flow Rate 6 Fraction of Inspir ed Oxygen Hydration adequate: Yes Nausea and vomiting: No Pain level: 1 Mental status: Baseline
--- NOTE | 2021-11-30 18:11 | PC.NURSE ---
SHIFT SUMMARY PT HAS DONE WELL, CBI IS RUNNING AT A SLOW DRIP AT THIS TIME, URINE DENILSON IN COLOR, NO CLOTS NOTED. A TOTAL OF 3000ML IRRIGANT INFUSED-4700ML FLUID OUT, URINE OUTPUT SINCE RECEIVED FROM SURGERY IS 1700ML. NO MANUAL IRRIGATION NEEDED THIS SHIFT, NO BLADDER DISTENTION OR DISCOMFORT NOTED. PATIENT RESTING WELL AT THIS TIME, CALL LIGHT WITHIN REACH. VISITORS AT BEDSIDE.
[2021-11-30] MEDS: HYDROcodone-acetaminophen 5-325 mg Tablet 1 TAB PO (22:10)
[2021-12-01 04:00] VITALS: BP 110/72; PULSE 81; RESP 18; TEMP 36.5; O2SAT 96
[2021-12-01] MEDS: D5-NS 0.45% + KCL 20 mEq 20 MEQ/1,000 ML BAG 50 MEQ IV (05:19)
--- NOTE | 2021-12-01 06:44 | PC.NURSE ---
CBI overnight infused 3 bags 9000ml total with 10,000ml out. Patient tolerated well, no complaints of pain. Urine weiss red with small clots until early this am currently light pink.
[2021-12-01 06:59] LABS: Basophils % 0.3 %; Eosinophils % 0.1 %; Hematocrit 29.3 % (42.0-52.0); Hemoglobin 8.8 g/dL (11.7-16.6); Lymphocytes # 1.5 10^3/uL (0.8-4.8); Lymphocytes % 15.6 %; Mean Corpuscular Hemoglobin 29.5 pg (28.0-34.0); Mean Corpuscular Volume 98.3 fl (80-94); Mean Platelet Volume 11.3 fL (7.4-10.4); Monocytes # 0.6 10^3/uL (0.2-0.9); Monocytes % 6.4 %; Neutrophils # 7.32 10^3/uL (1.8-7.7); Neutrophils % 77.2 %; Nucleated Red Blood Cells % 0 %; Red Blood Count 2.98 10^6/uL (4.1-5.3); Red Cell Distribution Width 17.8 % (12.1-15.1); White Blood Count 9.5 10^3/uL (4.0-10.0)
[2021-12-01 07:09] VITALS: BP 119/81; PULSE 75; RESP 17; TEMP 36.7; O2SAT 97
[2021-12-01 07:18] LABS: Anion Gap 14.6 (5-19); Blood Urea Nitrogen 27 mg/dL (8-23); Calcium 8.5 mg/dL (8.5-10.5); Carbon Dioxide 20 mmol/L (22-29); Chloride 99 mmol/L (98-107); Glucose 99 mg/dL (65-115); Osmolality Calculated 273 mOsm/kg (285-295); Potassium 4.6 mmol/L (3.5-5.1); Sodium 129 mmol/L (136-145)
--- NOTE | 2021-12-01 07:38 | PC.NURSE ---
Patient states he does not want to get up to the chair this am, says he will later.
[2021-12-01 08:12] LABS: Platelet Count 228 10^3/cmm (130-400)
[2021-12-01 08:13] LABS: Slide Review Slide Review Perform
[2021-12-01] MEDS: docusate sodium 100 mg Capsule PO ×2 (08:35→17:31)
--- NOTE | 2021-12-01 10:37 | PC.CHAP ---
Pastoral Care Encounter/Spiritual Assessment Type of Contact [] Declined radiology equipment servicer visit [] Patient/Family/Request visit [] Outpatient visit [] Follow-up visit [] Physician referral [] Code/Alert [x] Routine visit [] Staff referral [] Actively dying [] Patient sleeping [] Family support [] [] Out of room [] Palliative care [] [x] Receiving care in room [] Pre-surgical visit [] Trauma [] Long length of stay [] ICU visit [] Other: Relational/Emotional Strength [x] Patient feels connected with others/family/visitors/staff [] Distress [] Loneliness/isolation [] Abandonment Spirituality of Patient [x] Person of Jeannette [] Attends Sikhism of their Jeannette [x] Believes in Prayer [] Reads Bible or Mu-Ism materials [] There are Spiritual issues to be addressed Hospital Attendant Interventions [x] Prayer [x] Active listening [x] Non-anxious presence [x] Spiritual/emotional support [] Crisis/trauma care [x] Spiritual counseling [] Bereavement support [] Provided bereavement packet [] Provided Bible/devotional materials [] Provided toy/stuffed animal, coloring book to patient or family member [] Provided Communion [] Anointing/[place] [] Salvation [x] Completed spiritual assessment [] Other: Impact on Illness or Injury [] Angry [] Fearful [] Anxious [] Often cries [] Exhaustion [] Unable to work [] Unable to attend synagogue [] Unable to walk/stand [] Unable to read [] Unable to drive [] Unable to eat/drink [] Unable to sleep [] Unable to be with family [] Patient intubated [] Other: Summary hyas surgery feels good has a good attitude is going home Time spent with patient 10 mins
[2021-12-01 11:12] VITALS: BP 119/80; PULSE 75; RESP 17; TEMP 36.9; O2SAT 95
[2021-12-01] MEDS: HYDROcodone-acetaminophen 5-325 mg Tablet 1 TAB PO (15:27)
[2021-12-01 15:28] VITALS: BP 127/85; PULSE 77; RESP 18; TEMP 37.3; O2SAT 98
--- NOTE | 2021-12-01 18:28 | PM.DCS ---
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 The procedure went well. A large tumor on the posterior floor was resected deep into the bladder wall. Thankfully the left ureteral orifice was bypassable with a guidewire and a stent was placed to try improve renal function in the face of obstructive uropathy. Postoperatively he did well. CBI was continued for approximately 24 hours postop and then was stopped. Urine remained clear but with blood-tinged. Catheter functioned well. He was encouraged to drink a lot of fluids. By the evening of postoperative day #1 he was felt to be a good candidate for further convalescence at home and was discharged in stable condition. Physical Exam Narrative: Alert oriented no acute distress No labored respiration Urine clear but with blood tinge No change from prior exam. Urinary Catheter Management: 3-way Urethral CBI: Cath Placed During This Visit: yes Reason for Continuing Indwelling Catheter: Perioperative Use in Selected Surgeries Urinary Catheter Date of Insertion: 11/30/21 Urinary Catheter Time of Insertion: 07:50 Discharge Data Studies Completed and Pending Pending at discharge Category Date Time Status Pathology: Surgical [PTH] Routine Pth 11/30/21 08:16 Received Laboratory Results WBC 9.5 10^3/uL (4.0-10.0) 12/01/21 06:48 RBC 2.98 10^6/uL (4.1-5.3) L 12/01/21 06:48 Hgb 8.8 g/dL (11.7-16.6) L 12/01/21 06:48 Hct 29.3 % (42.0-52.0) L 12/01/21 06:48 MCV 98.3 fl (80-94) H 12/01/21 06:48 MCH 29.5 pg (28.0-34.0) 12/01/21 06:48 MCHC 30.0 g/dL (30.0-36.0) 12/01/21 06:48 RDW 17.8 % (12.1-15.1) H 12/01/21 06:48 Plt Count 228 10^3/cmm (130-400) 12/01/21 06:48 MPV 11.3 fL (7.4-10.4) H 12/01/21 06:48 Neut % (Auto) 77.2 % 12/01/21 06:48 Lymph % (Auto) 15.6 % 12/01/21 06:48 [place] % (Auto) 6.4 % 12/01/21 06:48 Eos % (Auto) 0.1 % 12/01/21 06:48 Baso % (Auto) 0.3 % 12/01/21 06:48 Neut # (Auto) 7.32 10^3/uL (1.8-7.7) 12/01/21 06:48 Lymph # (Auto) 1.5 10^3/uL (0.8-4.8) 12/01/21 06:48 [place] # (Auto) 0.6 10^3/uL (0.2-0.9) 12/01/21 06:48 Eos # (Auto) 0.0 10^3/uL (0.0-0.8) 12/01/21 06:48 Baso # (Auto) 0.0 10^3/uL (0.0-0.1) 12/01/21 06:48 Nucleated RBC % (auto) 0 % 12/01/21 06:48 Nucleated RBCs # 0.0 /100WBC 12/01/21 06:48 Sodium 129 mmol/L (136-145) L 12/01/21 06:48 Potassium 4.6 mmol/L (3.5-5.1) 12/01/21 06:48 Chloride 99 mmol/L (98-107) 12/01/21 06:48 Carbon Dioxide 20 mmol/L (22-29) L 12/01/21 06:48 Anion Gap 14.6 (5-19) 12/01/21 06:48 BUN 27 mg/dL (8-23) H 12/01/21 06:48 Creatinine 2.1 mg/dL (0.7-1.2) H 12/01/21 06:48 GFR Calculation Not Reportable 12/01/21 06:48 Glucose 99 mg/dL (65-115) 12/01/21 06:48 Calculated Osmolality 273 mOsm/kg (285-295) L 12/01/21 06:48 Calcium 8.5 mg/dL (8.5-10.5) 12/01/21 06:48 Vitals Last Vital Signs Temp 99.2 F 12/01/21 15:28 Pulse 77 12/01/21 15:28 Resp 18 12/01/21 15:28 BP 127/85 12/01/21 15:28 Pulse Ox 98 12/01/21 15:28 Discharge Plan Discharge Patient Disposition: Home Condition: Stable Prescriptions: Continued levothyroxine 75 mcg capsule 75 mcg PO DAILY 0RF metoprolol tartrate 50 mg tablet 50 mg PO DAILY Qty: 90 3RF furosemide 40 mg tablet 40 mg PO DAILY PRN (Reason: edema) Qty: 90 1RF Centrum Silver Men 300-600-300 mcg Tablet 1 tab PO DAILY 0RF Discharge Orders: Discharge Order (Routine); Ordered 12/01/21 Ordered By: Claude Pope Referrals: Claude Pope MD [Physician] - 12/05/21 (Voiding trial, pathology report reviewed) Rafael Torrez MD [Hospitalist] - 4-7 days (Evaluate for systemic therapy related to metastatic bladder cancer) Discharge Diet: Advance as tolerated Discharge Activity: Limit activity as instructed Patient Instructions: Opioid Safety Activity Restrictions/Additional Instructions: 1. We will leave the catheter in until 12/05/2021 and remove it in my office. 2. Hopefully we will have the pathology report back by that time. 3. We will also schedule appointment to see Dr. Torrez early next week if possible for further discussion on additional treatment required. 4. It is very important to consume more fluid than you typically would choose to do so in order to keep your urine dilute. This is important. If the urine becomes bloody it would likely occlude the catheter which would require a trip to the emergency department for catheter change or bladder irrigation. 5. Please avoid any strenuous activity. This includes straining or lifting >10 pounds. Avoid constipation. Use laxative and stool softeners as needed to accomplish this. 6. You can choose between which bag for the catheter to keep on. The leg bag provides more mobility but requires more frequent emptying because of smaller capacity. The night bag is more bulky, requires close observation to avoid catching it on something, but provides the benefit of larger capacity. 7. My office number is [phone] if you have any questions. If you have not heard about an appointment time please call on 12/02/2021 to confirm your appointment time. 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
[2021-12-01 18:45] VITALS: BP 109/74; PULSE 84; RESP 17; TEMP 36.9; O2SAT 96
[2021-12-01 19:35] VITALS: BP 109/74; PULSE 84; RESP 17; TEMP 36.9; O2SAT 96
== END 2021-12-01 18:50 | disposition home or self-care (01) ==
LOC: MEDSURG 10:23
PROVIDERS: Admitting Provider Urology; PCP Family Medicine; Visit Provider Urology
PROC: 0TJB8ZZ Inspection of Bladder, Via Natural or Artificial Opening Endoscopic (ICD-10-PCS; CPT 52000; principal; 2021-11-30 07:00)
PROC: 0TBB8ZZ Excision of Bladder, Via Natural or Artificial Opening Endoscopic (ICD-10-PCS; CPT 52240; 2021-11-30 07:00)
PROC: (CPT 74420; 2021-11-30 07:00)
PROC: (CPT 50605; 2021-11-30 07:00)
DX: C67.9 Malignant neoplasm of bladder, unspecified (principal); C77.2 Secondary and unspecified malignant neoplasm of intra-abdominal lymph nodes; N13.5 Crossing vessel and stricture of ureter without hydronephrosis; D64.9 Anemia, unspecified; I25.10 Atherosclerotic heart disease of native coronary artery without angina pectoris; Z79.01 Long term (current) use of anticoagulants; I48.91 Unspecified atrial fibrillation; Z95.1 Presence of aortocoronary bypass graft; Z82.49 Family history of ischemic heart disease and other diseases of the circulatory system; I25.2 Old myocardial infarction
CPT/HCPCS: 52240; 52332; 36415; 76000; 80048; 85025; 88307; 88360; C2625; G0378; J1956; J2370; J2405; J2704; J2710; J3010; J3490; J7030; Q9967

== ENCOUNTER 2021-12-05 15:26 | Outpatient (CLI) | payer MEDICARE, SELFPAY ==
--- NOTE | 2021-12-06 07:27 | ONC FU_ITS ---
Dr. Torrez Patient Follow-Up Note Patient: Juan J Fuller Unit #: [id number]: 1940 Dicatated By: Rafael Torrez M.D.Date of Visit:Dec 05, 2021 Onc Med Follow-up/Prog Note Chief Complaint: Anemia/bladder cancer. History of Present Illness: This is an 81-year-old man with moderately severe anemia. He has now been found to have muscle invasive bladder cancer. On a follow-up visit with Dr. Whaley in July 2021 he complained of increased weakness/fatigue. His CBC showed moderately severe anemia with hemoglobin 9.0 g and hematocrit 27.4%. The red cell indices were normal. The white blood cell count was low at 2900 with the differential showing 34% neutrophils, 52% lymphocytes, 10% monocytes, 1% eosinophils, and 1% basophil's. The platelet count was normal at 181,000. His B12 level was normal at 883 pg/mL. I had seen him initially on 09/01/2021. In reviewing his records in [facility], he had previously been mildly anemic with his prior CBCs dating back to 2012 consistently showing hemoglobin in the range of 11 to 12 g. On a previous study from October 2008 it was normal at 14.7 g. His most recent echocardiogram available in [facility] was done in February 2016. It showed an estimated left ventricular ejection fraction of 35 to 40%. His laboratory studies on 09/01/2021 included CBC showing hemoglobin 9.2 g with hematocrit 29.6%. The red cell indices were normal. The white blood cell count was 4700 with absolute neutrophil count 2100. The platelet count was slightly low at 127,000. LDH was slightly elevated at 248/220 5U/L. Haptoglobin was normal 127 mg/L. Sed rate was normal at 14 mm/h. Comprehensive metabolic profile showed elevated BUN and creatinine at 16 and 1.5 mg/dL. Bilirubin and liver enzymes were normal. The serum iron studies showed borderline low transferrin saturation at 21.4% with ferritin elevated at 639 ng/mL. Erythropoietin level was mildly elevated at 54.4 mIU/mL. There was no monoclonal protein detected on serum or urine protein electrophoresis. TSH was slightly elevated at 4.86 ???IU/mL. He underwent bone marrow aspiration/biopsy on 11/07/2021. The bone marrow showed normal cellularity estimated at 10 to 30%. There were no overt dyspoietic or megaloblastic changes seen. There was no evidence of an infiltrative process. Iron stores were normal to mildly increased. There were no ring sideroblasts identified. There was no significant reticulin fibrosis. The standard cytogenetic study was normal and the FISH panel for MDS was unrevealing. Overall, the bone marrow findings were nondiagnostic. I had seen him for a follow-up visit on 11/24/2021. He was feeling noticeably worse. In addition to being very weak and tired, he reported having urinary frequency and some dysuria, and he also reported having blood in his urine. His hemoglobin had further decline to 8.1 g. There was a significant decline in renal function with his BUN elevated at 41 mg/dL and creatinine 2.5 mg/dL. Alkaline phosphatase was significantly elevated at 296/130 IU/L. The hematuria was confirmed by urinalysis. His noncontrast CT abdomen/pelvis showed diffuse nodular bladder wall nodularity, most likely due to bladder carcinoma. There was associated obstruction of the left UVJ with moderate left hydronephrosis. There was bulky periaortic metastatic adenopathy extending into the iliac chains bilaterally and there were numerous low-attenuation ill-defined lesions in the liver which were suspicious for metastatic disease, the largest measuring 2.5 cm. A partially visualized soft tissue lesion was noted in the right lower lobe along the fissure adjacent to the heart. Also noted was pleural nodularity in the right middle lobe and a tiny right pleural effusion. With those findings, he was seen by Dr. Pope, and on 11/30/2021 he underwent cystoscopy with TURBT and with left ureteral stent placement. Grossly he was noted to have large volume invasive appearing bladder cancer involving most of the left lateral wall and also a portion of the floor and a portion of the anterior wall. The area of resection was on the posterior floor extending 5.5 to 6 cm in diameter. Pathology showed high-grade urothelial carcinoma with lamina propria and with detrussor muscle involvement. His medical history is also significant for hypertension and coronary artery disease. He has associated ischemic cardiomyopathy, atrial fibrillation, and congestive heart failure. He underwent coronary artery bypass in 2008. His other illnesses include pulmonary hypertension, hypothyroidism, and GERD. He is a non-smoker. He is seen for a follow-up visit. He has been feeling weak and generally, but he did get transfused here last week, and since then his energy has been a little better. Medications: Euthyrox 1 Tablet (of 75 mcg) Oral daily, Furosemide 1 Tablet (of 40 mg) Oral daily, Metoprolol Tartrate 1 Tablet (of 50 mg) Oral daily Allergies: Meperidine HCl Vital Signs: Performed on Dec 05, 2021 16:16 Height - 70.00 in Weight - 152.8 lbs (HIGH) BSA - 1.86 sq.m BMI - 21.92 Temperature - 97.5 F (LOW) Pulse - 90 /min Respiration - 18 /min BP - 109/67 mm(hg) O2 Sat - 99 % Pain - 0 Fatigue - 5 Problem List: 1. 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 2. There is associated left hydronephrosis with renal impairment. 3. Anemia secondary to underlying malignancy. 4. Hypertension. 5. Coronary artery disease with previous coronary artery bypass surgery. 6. Ischemic cardiomyopathy/congestive heart failure. 7. Atrial fibrillation. 8. Pulmonary hypertension. 9. Hypothyroidism. 10. GERD. Problems Addressed with this Encounter and Plan: 1. Patient with high-grade urothelial carcinoma involving the bladder, by clinical evaluation stage IVB (T2b, N3, M1b). There is associated left hydronephrosis with renal impairment. He has undergone cystoscopy/TURBT with left ureteral stent placement. The CT findings, cystoscopy findings, and the pathology results were reviewed with the patient and his daughter. We discussed the clinic complications. He has high-grade bladder cancer which is both locally advanced and metastatic and thus incurable. His disease will not be amenable to further surgery or to radiation. His options for systemic therapy may include chemotherapy, immunotherapy, and/or targeted therapy depending on results of a next generation sequencing study on his tumor, which has been requested. Standard chemotherapy may or may not be feasible, depending on his performance status and his renal function. I will plan to see him again for specific treatment recommendations when the results of the next generation sequencing are available. In the meantime, he will complete staging with PET/CT. 2. He has moderately severe anemia, now presumed to be due to underlying malignancy. His blood counts will be monitored and he will be transfused PRBC as needed. Signed By: Rafael Torrez M.D. <<Signature on File>>
== END 2021-12-05 15:27 | disposition home or self-care (01) ==
LOC: ONCMED 15:28
PROVIDERS: PCP Family Medicine; Visit Provider Internal Medicine Medical Oncology
DX: C67.8 Malignant neoplasm of overlapping sites of bladder (principal); D63.0 Anemia in neoplastic disease
CPT/HCPCS: 99215

== ENCOUNTER 2021-12-12 15:09 | Outpatient (CLI) | payer MEDICARE, SELFPAY ==
[2021-12-12 16:10] LABS: Basophils % 0.6 %; Eosinophils # 0.1 10^3/uL (0.0-0.8); Eosinophils % 0.9 %; Lymphocytes # 1.6 10^3/uL (0.8-4.8); Lymphocytes % 22.9 %; Mean Corpuscular Hemoglobin 29.3 pg (28.0-34.0); Mean Corpuscular Volume 94.5 fl (80-94); Mean Platelet Volume 12.1 fL (7.4-10.4); Monocytes # 0.4 10^3/uL (0.2-0.9); Monocytes % 6.1 %; Neutrophils # 4.87 10^3/uL (1.8-7.7); Neutrophils % 69.1 %; Nucleated Red Blood Cells % 0 %; Positive C 1; Red Blood Count 3.07 10^6/uL (4.1-5.3); Red Cell Distribution Width 16.3 % (12.1-15.1)
[2021-12-12 16:14] LABS: Platelet Count 164 10^3/cmm (130-400)
[2021-12-12 16:34] LABS: Alanine Aminotransferase 13 U/L (0-41); Albumin Level 3.3 g/dL (3.5-5.2); Alkaline Phosphatase 203 IU/L (40-130); Anion Gap 18.5 (5-19); Aspartate Amino Transferase 22 U/L (0-40); Blood Urea Nitrogen 30 mg/dL (8-23); Calcium 8.2 mg/dL (8.5-10.5); Carbon Dioxide 20 mmol/L (22-29); Chloride 94 mmol/L (98-107); Glucose 115 mg/dL (65-115); Osmolality Calculated 273 mOsm/kg (285-295); Potassium 4.5 mmol/L (3.5-5.1); Sodium 128 mmol/L (136-145); Total Protein 7.3 g/dL (6.6-8.7)
== END 2021-12-12 15:10 | disposition home or self-care (01) ==
PROVIDERS: PCP Family Medicine; Visit Provider Internal Medicine Medical Oncology
DX: C67.9 Malignant neoplasm of bladder, unspecified (principal); C77.2 Secondary and unspecified malignant neoplasm of intra-abdominal lymph nodes; D64.9 Anemia, unspecified
CPT/HCPCS: 80053; 85025

== ENCOUNTER 2021-12-29 10:00 | Oncology outpatient (recurring) (ONCR) | payer MEDICARE, SELFPAY ==
[2021-12-19 12:06] LABS: Basophils % 0.5 %; Eosinophils % 0.1 %; Hematocrit 28.5 % (42.0-52.0); Hemoglobin 9.2 g/dL (11.7-16.6); Lymphocytes # 1.6 10^3/uL (0.8-4.8); Lymphocytes % 20.4 %; Mean Corpuscular HGB Conc 32.3 g/dL (30.0-36.0); Mean Corpuscular Hemoglobin 29.4 pg (28.0-34.0); Mean Corpuscular Volume 91.1 fl (80-94); Mean Platelet Volume 12.2 fL (7.4-10.4); Monocytes # 0.4 10^3/uL (0.2-0.9); Monocytes % 5.7 %; Neutrophils # 5.59 10^3/uL (1.8-7.7); Neutrophils % 72.9 %; Nucleated Red Blood Cells % 0 %; Platelet Count 149 10^3/cmm (130-400); Red Blood Count 3.13 10^6/uL (4.1-5.3); Red Cell Distribution Width 15.9 % (12.1-15.1); White Blood Count 7.7 10^3/uL (4.0-10.0)
[2021-12-19 12:42] LABS: Alanine Aminotransferase 17 U/L (0-41); Albumin Level 3.7 g/dL (3.5-5.2); Alkaline Phosphatase 164 IU/L (40-130); Anion Gap 19.7 (5-19); Aspartate Amino Transferase 28 U/L (0-40); Blood Urea Nitrogen 60 mg/dL (8-23); Calcium 9.5 mg/dL (8.5-10.5); Carbon Dioxide 22 mmol/L (22-29); Chloride 94 mmol/L (98-107); Globulin 4.1 g/dL (1.3-4.6); Glucose 119 mg/dL (65-115); Osmolality Calculated 290 mOsm/kg (285-295); Potassium 4.7 mmol/L (3.5-5.1); Sodium 131 mmol/L (136-145); Total Bilirubin 0.8 mg/dL (0.15-1.2); Total Protein 7.8 g/dL (6.6-8.7)
[2021-12-29] MEDS: sodium chloride 0.9% 500 ML 999 ML IV (13:02)
[2021-12-29] MEDS: pembrolizumab 200 MG in sodium chloride 0.9% 250 ML 516 MG IV (13:08)
[2021-12-29 14:09] VITALS: BP 114/75; PULSE 93; RESP 20; TEMP 35.9; O2SAT 99
== END 2022-01-10 23:59 | disposition home or self-care (01) ==
PROVIDERS: PCP Family Medicine; Referring Provider Family Medicine; Visit Provider Internal Medicine Medical Oncology
DX: Z51.12 Encounter for antineoplastic immunotherapy (principal); C67.8 Malignant neoplasm of overlapping sites of bladder; C77.2 Secondary and unspecified malignant neoplasm of intra-abdominal lymph nodes; N13.30 Unspecified hydronephrosis; N28.9 Disorder of kidney and ureter, unspecified; E86.0 Dehydration; D64.9 Anemia, unspecified; I48.91 Unspecified atrial fibrillation; Z79.899 Other long term (current) drug therapy; C67.9 Malignant neoplasm of bladder, unspecified
CPT/HCPCS: 36415; 80053; 84443; 85025; 96413; 99215; 99999; J7040; J7050; J9271

== ENCOUNTER 2021-12-29 10:06 | Outpatient (CLI) | payer MEDICARE, SELFPAY ==
[2021-12-29 10:56] LABS: Basophils # 0.1 10^3/uL (0.0-0.1); Basophils % 0.5 %; Eosinophils # 0.1 10^3/uL (0.0-0.8); Eosinophils % 0.4 %; Hematocrit 29.6 % (42.0-52.0); Hemoglobin 9.4 g/dL (11.7-16.6); Lymphocytes # 1.4 10^3/uL (0.8-4.8); Lymphocytes % 10.7 %; Mean Corpuscular HGB Conc 31.8 g/dL (30.0-36.0); Mean Corpuscular Hemoglobin 28.6 pg (28.0-34.0); Mean Platelet Volume 12.6 fL (7.4-10.4); Monocytes # 0.4 10^3/uL (0.2-0.9); Monocytes % 3.4 %; Neutrophils # 10.83 10^3/uL (1.8-7.7); Neutrophils % 84.3 %; Nucleated Red Blood Cells % 0 %; Platelet Count 108 10^3/cmm (130-400); Red Blood Count 3.29 10^6/uL (4.1-5.3); Red Cell Distribution Width 15.9 % (12.1-15.1); White Blood Count 12.8 10^3/uL (4.0-10.0)
[2021-12-29 11:25] LABS: Alanine Aminotransferase 30 U/L (0-41); Albumin Level 3.5 g/dL (3.5-5.2); Alkaline Phosphatase 199 IU/L (40-130); Anion Gap 18.2 (5-19); Aspartate Amino Transferase 40 U/L (0-40); Blood Urea Nitrogen 56 mg/dL (8-23); Calcium 9.3 mg/dL (8.5-10.5); Carbon Dioxide 21 mmol/L (22-29); Chloride 94 mmol/L (98-107); Globulin 4.9 g/dL (1.3-4.6); Glucose 126 mg/dL (65-115); Osmolality Calculated 283 mOsm/kg (285-295); Potassium 5.2 mmol/L (3.5-5.1); Sodium 128 mmol/L (136-145); Thyroid Stimulating Hormone 6.57 uIU/mL (0.27-4.20); Total Bilirubin 0.6 mg/dL (0.15-1.2); Total Protein 8.4 g/dL (6.6-8.7)
== END 2021-12-29 10:07 | disposition home or self-care (01) ==
PROVIDERS: PCP Family Medicine; Visit Provider Internal Medicine Medical Oncology
DX: C77.2 Secondary and unspecified malignant neoplasm of intra-abdominal lymph nodes (principal); C67.9 Malignant neoplasm of bladder, unspecified
CPT/HCPCS: 36415; 80053; 84443; 85025

== ENCOUNTER 2022-01-10 08:53 | Emergency (ER) | payer MEDICARE, SELFPAY ==
--- NOTE | 2022-01-10 09:01 | XR_ITS ---
WS: [id number] Portable AP upright chest, 01/10/2022 Clinical Data: chest pain Comparison: Portable chest, 02/18/2016. Findings: There is a patchy opacity in the right lower lobe which may represent atelectasis and/or pn eumonia. The left lung is clear. No nodules, masses or effusions are seen. The heart is enlarged. Mid line sternotomy sutures are present. There is calcification of the aortic arch and descending thoraci c aorta along with tortuosity. There are old left fifth through eighth rib fractures. There is a dext roscoliosis with midthoracic compression fractures. There is a monitor lead on the left chest. XR/XR chest 1V portable 60083 Impression: 1. Patchy opacity in right lower lobe which may represent atelectasis and/or pn eumonia and recommend repeat chest x-ray in 2-3 days. 2. Cardiomegaly and atherosclerosis.
--- NOTE | 2022-01-10 09:01 | ECG_ITS ---
[facility] Test Date: 2022-01-10 Pat Name: Juan J Fuller Department: Room: Gender: Male Installation Service Representative: : 1940 Requested By: Sita Silverman Order Number: [id number] Rolanda MD: Duncan Harden M.D. Measurements Intervals [place] Rate: 79 P: AR: QRS: 37 QRSD: 95 T: 134 QT: 365 QTc: 421 Interpretive Statements ATRIAL FIBRILLATION WITH ABERRANT CONDUCTION OR VENTRICULAR PREMATURE COMPLEXES POSSIBLE INFERIOR MYOCARDIAL INFARCTION , PROBABLY OLD [30 ms Q WAVE IN II/aVF] MODERATE T-WAVE ABNORMALITY, CONSIDER LATERAL ISCHEMIA [-0.1+ mV T-WAVE IN I/aVL/V5/V6] Compared to ECG 02/19/2016 05:55:07 Ventricular premature complex(es) now present Aberrant conduction of supraventricular beat(s) now present T-wave abnormality now present Possible ischemia now present Sinus bradycardia no longer present First degree AV block no longer present Myocardial infarct finding still present Electronically Signed On 01-10-2022 18:29:49 CDT by Duncan Harden M.D. [id number]
[2022-01-10 09:15] LABS: Basophils # 0.1 10^3/uL (0.0-0.1); Basophils % 0.4 %; Hematocrit 31.2 % (42.0-52.0); Hemoglobin 10.2 g/dL (11.7-16.6); Lymphocytes % 7.9 %; Mean Corpuscular HGB Conc 32.7 g/dL (30.0-36.0); Mean Corpuscular Hemoglobin 28.3 pg (28.0-34.0); Mean Corpuscular Volume 86.7 fl (80-94); Mean Platelet Volume 11.8 fL (7.4-10.4); Monocytes # 0.4 10^3/uL (0.2-0.9); Monocytes % 3.1 %; Neutrophils # 11.29 10^3/uL (1.8-7.7); Neutrophils % 87.9 %; Nucleated Red Blood Cells % 0 %; Platelet Count 175 10^3/cmm (130-400); Red Cell Distribution Width 16.8 % (12.1-15.1); White Blood Count 12.8 10^3/uL (4.0-10.0)
[2022-01-10 09:16] VITALS: BP 94/83; PULSE 82; RESP 18; TEMP 36.6; O2SAT 97
[2022-01-10 09:22] VITALS: BP 104/73; PULSE 81; RESP 18; O2SAT 96
[2022-01-10 09:48] LABS: Alanine Aminotransferase 18 U/L (0-41); Albumin Level 3.4 g/dL (3.5-5.2); Alkaline Phosphatase 141 IU/L (40-130); Anion Gap 20.1 (5-19); Aspartate Amino Transferase 28 U/L (0-40); Calcium 9.6 mg/dL (8.5-10.5); Carbon Dioxide 19 mmol/L (22-29); Chloride 96 mmol/L (98-107); Globulin 4.3 g/dL (1.3-4.6); Glucose 175 mg/dL (65-115); Osmolality Calculated 299 mOsm/kg (285-295); Potassium 5.1 mmol/L (3.5-5.1); Sodium 130 mmol/L (136-145); Total Bilirubin 0.7 mg/dL (0.15-1.2); Total Protein 7.7 g/dL (6.6-8.7)
[2022-01-10 09:49] LABS: Troponin(5th) Baseline 58 ng/L (0-15)
[2022-01-10 09:52] VITALS: BP 103/60; PULSE 81; RESP 18; O2SAT 96
[2022-01-10 09:54] LABS: Blood Urea Nitrogen 81 mg/dL (8-23)
[2022-01-10] MEDS: sodium chloride 0.9% 1,000 ML 999 ML IV (10:12)
--- NOTE | 2022-01-10 10:29 | ED_ITS ---
HPI - Chest Pain General: Chief Complaint: Chest Pain Stated Complaint: CHEST TIGHTNESS/ GENERAL WEAKNESS Time Seen by Provider: 01/10/22 09:19 Source: patient Mode of arrival: EMS History of Present Illness: 81-year-old male with a history of bladder CA with metastasis presents to the emergency room with generalized weakness. Patient has known history of A. fib. He is not currently on any anticoagulation. He takes metoprolol 50 mg daily he was given Cardizem IV by EMS and his rate on arrival was in the 80s A. fib but the rate well controlled. His blood pressure is mildly decreased. Patient is otherwise at his normal mentation status. He had chest discomfort at home but none since his rate was lowered. He denies any chest or abdominal pain. MD complaint: chest pain Onset (ago): minute(s) Timing of current episode: episodic Prior episodes: Yes Onset: during rest Quality: tightness, aching and heaviness Exacerbating factors: nothing Associated symptoms: Deny abdominal pain, diaphoresis, dyspnea, fever(s), leg edema, nausea, palpitations, sense of impending doom, syncope or vomiting Treatment prior to arrival: none Review of Systems Const: Denies: fever(s), chills, body aches, change in appetite or diaphoresis ENMT: Denies: throat pain or enlarged tonsils Card: Denies: chest pain, palpitations or syncope Resp: Denies: dyspnea or productive cough GI: Denies: abdominal pain, nausea or vomiting : Denies: flank pain or difficulty urinating Neuro: Denies: headache(s) Psych: Denies: anxiety or depression PFS ED PFSH: Medical History Anemia Anticoagulated on Coumadin ASHD (arteriosclerotic heart disease) Atrial fibrillation Bladder cancer metastasized to intra-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 LEFT ureteral obstruction also associated with this. Left ureteral stent placed November 2021 for improvement of renal function in hopes of allowing full spectrum of systemic therapies available. GERD (gastroesophageal reflux disease) HTN (hypertension) Hypothyroidism Ischemic cardiomyopathy Mitral regurgitation Pulmonary HTN Ureteral obstruction Surgical History History of bone marrow biopsy (~10/2021) Hx of transurethral destruction of bladder lesion (~11/2021) S/P CABG (coronary artery bypass graft) Status post cystoscopy with ureteral stent placement (~11/2021) Family History Sister Cancer Mother , at age 81 Hypertension Stroke Father No problems noted. Other CAD (coronary artery disease) Suicide Denies family history of Diabetes Clotting disorder Dementia Hyperlipidemia Psychiatric illness Chronic kidney disease (CKD) Anesthesia complication Bleeding disorder Lung disease Social History Smoking and tobacco status: never smoked Second hand smoke exposure: No Alcohol intake: never Marital status: Current occupational status: retired History of recent travel: No Physical Exam Const: GENERAL APPEARANCE: cooperative and comfortable ORIENTATION/CONSCIOU SNESS: Yes awake, Yes oriented to person, Yes oriented to place and Yes oriented to time HENMT: COMMON NORMALS: normocephalic, atraumatic and hearing grossly normal bilaterally HEAD & SCALP: normocephalic and atraumatic Neck/C-Spine: COMMON NORMALS: no JVD Resp: COMMON NORMALS: normal respiratory effort, No retractions, No use of accessory muscles and clear to auscultation bilaterally AUSCULTATION: clear to auscultation bilaterally Cardio: COMMON NORMALS: no JVD, regular rate and No murmurs present (Cardio) RATE: regular rate RHYTHM: abnormal rhythm irregularly irregular GI: COMMON NORMALS: Soft to palpation and No hepatosplenomegaly present AUSCULTATION: Yes normoactive bowel sounds PALPATION: Yes Soft to palpation, No Tenderness to palpation present (GI), No Guarding due to palpation present (GI) and Yes No hepatosplenomegaly present Extremity: COMMON NORMALS: normal to inspection, capillary refill normal, no clubbing, cyanosis or edema, no calf tenderness and no pedal edema Neuro: SENSORIUM/ORIENTATION: Yes oriented to person, Yes oriented to place and Yes oriented to time Skin: COMMON NORMALS: no rashes or lesions noted GENERAL SKIN EXAM: no yessy hes or lesions noted Course Vital Signs: Vital signs: Vital Signs Temperature 97.8 F 01/10/22 09:16 Pulse Rate 101 H 01/10/22 11:30 Respiratory Rate 18 01/10/22 11:30 Blood Pressure 114/78 05/31/22 11:30 Pulse Oximetry 96 01/10/22 11:30 MDM - Chest Pain Medical Decision Making EMS reported A. fib with rapid ventricular response he was given a single dose of Cardizem and converted and he remained in atrial fibrillation with a well- controlled rate while he was in the emergency room. His troponins have been negative. 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 Medical Records I reviewed the patient's medical records. Lab Data I reviewed the patient's lab results. : 01/10/22 09:05 01/10/22 09:05 Radiology Impressions Chest X-Ray 01/10/22 09:01 Impression: 1. Patchy opacity in right lower lobe which may represent atelectasis and/or pneumonia and recommend repeat chest x-ray in 2-3 days. 2. Cardiomegaly and atherosclerosis. Laboratory Results WBC 12.8 10^3/uL (4.0-10.0) H 01/10/22 09:05 RBC 3.60 10^6/uL (4.1-5.3) L 01/10/22 09:05 Hgb 10.2 g/dL (11.7-16.6) L 01/10/22 09:05 Hct 31.2 % (42.0-52.0) L 01/10/22 09:05 MCV 86.7 fl (80-94) 01/10/22 09:05 MCH 28.3 pg (28.0-34.0) 01/10/22 09:05 MCHC 32.7 g/dL (30.0-36.0) 01/10/22 09:05 RDW 16.8 % (12.1-15.1) H 01/10/22 09:05 Plt Count 175 10^3/cmm (130-400) 01/10/22 09:05 MPV 11.8 fL (7.4-10.4) H 01/10/22 09:05 Neut % (Auto) 87.9 % 01/10/22 09:05 Lymph % (Auto) 7.9 % 01/10/22 09:05 Cross % (Auto) 3.1 % 01/10/22 09:05 Eos % (Auto) 0.0 % 01/10/22 09:05 Baso % (Auto) 0.4 % 01/10/22 09:05 Neut # (Auto) 11.29 10^3/uL (1.8-7.7) H 01/10/22 09:05 Lymph # (Auto) 1.0 10^3/uL (0.8-4.8) 01/10/22 09:05 Cross # (Auto) 0.4 10^3/uL (0.2-0.9) 01/10/22 09:05 Eos # (Auto) 0.0 10^3/uL (0.0-0.8) 01/10/22 09:05 Baso # (Auto) 0.1 10^3/uL (0.0-0.1) 01/10/22 09:05 Nucleated RBC % (auto) 0 % 01/10/22 09:05 Nucleated RBCs # 0.0 /100WBC 01/10/22 09:05 Sodium 130 mmol/L (136-145) L 01/10/22 09:05 Potassium 5.1 mmol/L (3.5-5.1) 01/10/22 09:05 Chloride 96 mmol/L (98-107) L 01/10/22 09:05 Carbon Dioxide 19 mmol/L (22-29) L 01/10/22 09:05 Anion Gap 20.1 (5-19) H 01/10/22 09:05 BUN 81 mg/dL (8-23) H 01/10/22 09:05 Creatinine 2.0 mg/dL (0.7-1.2) H 01/10/22 09:05 GFR Calculation Not Reportable 01/10/22 09:05 Glucose 175 mg/dL (65-115) H 01/10/22 09:05 Calculated Osmolality 299 mOsm/kg (285-295) H 01/10/22 09:05 Calcium 9.6 mg/dL (8.5-10.5) 01/10/22 09:05 Total Bilirubin 0.7 mg/dL (0.15-1.2) 01/10/22 09:05 AST 28 U/L (0-40) 01/10/22 09:05 ALT 18 U/L (0-41) 01/10/22 09:05 Alkaline Phosphatase 141 IU/L (40-130) H 01/10/22 09:05 Troponin T Baseline 58 ng/L (0-15) H 01/10/22 09:05 Troponin T 120 Minute 51.53 ng/L (0-15) H 01/10/22 11:25 Delta Troponin T -6.47 ABS# (0-10) L 01/10/22 11:25 Total Protein 7.7 g/dL (6.6-8.7) 01/10/22 09:05 Albumin 3.4 g/dL (3.5-5.2) L 01/10/22 09:05 Globulin 4.3 g/dL (1.3-4.6) 01/10/22 09:05 Discharge Plan Discharge Patient Disposition: Home Clinical Impression: Atrial fibrillation, Bladder cancer metastasized to intra-abdominal lymph nodes, Anemia Condition: Stable Prescriptions: No Action levothyroxine 75 mcg capsule 75 mcg PO DAILY 0RF metoprolol tartrate 50 mg tablet 50 mg PO DAILY Qty: 90 1RF Centrum Silver Men 300-600-300 mcg tablet 1 tab PO DAILY 0RF potassium 99 mg Tablet 99 mg PO DAILY 0RF Discharge Orders: Discharge ED (Routine); Ordered 01/10/22 Ordered By: Sandro Collins Referrals: Rufino Whaley DO [Primary Care Provider] - Discharge Diet: Usual diet Patient Instructions: Opioid Safety Activity Restrictions/Additional Instructions: 3 [facility] will consult in your home. 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
--- NOTE | 2022-01-10 11:01 | ECG_ITS ---
[facility] Test Date: 2022-01-10 Pat Name: Juan J Fuller Department: Room: Gender: Male Software Quality Assurance Engineer: : 1940 Requested By: Sita Silverman Order Number: [id number] Rolanda MD: Duncan Harden M.D. Measurements Intervals Olivia Rate: 91 P: OK: QRS: 18 QRSD: 108 T: 141 QT: 378 QTc: 467 Interpretive Statements ATRIAL FIBRILLATION INFERIOR MYOCARDIAL INFARCTION , PROBABLY OLD [40+ ms Q WAVE AND/OR ST/T ABNORMALITY IN II/aVF] MODERATE T-WAVE ABNORMALITY, CONSIDER LATERAL ISCHEMIA [-0.1+ mV T-WAVE IN I/aVL/V5/V6] Compared to ECG 01/10/2022 09:04:57 Ventricular premature complex(es) no longer present Aberrant conduction of supraventricular beat(s) no longer present Myocardial infarct finding still present T-wave abnormality still present Possible ischemia still present Electronically Signed On 01-10-2022 18:38:04 CDT by Duncan Harden M.D. [id number]
[2022-01-10 11:30] VITALS: BP 114/78; PULSE 101; RESP 18; O2SAT 96
[2022-01-10 12:27] LABS: Troponin 5 2HR 51.53 ng/L (0-15)
[2022-01-10 12:28] LABS: Troponin 5 2HR Delta -6.47 ABS# (0-10)
--- NOTE | 2022-01-10 13:59 | PC.NURSE ---
Hospice is set up and will contact pt's dtr.
== END 2022-01-10 13:59 | disposition home or self-care (01) ==
PROVIDERS: Physician Assistant; Emergency Provider Family Medicine; PCP Family Medicine
DX: I48.91 Unspecified atrial fibrillation (principal); C67.9 Malignant neoplasm of bladder, unspecified; C77.2 Secondary and unspecified malignant neoplasm of intra-abdominal lymph nodes; D64.9 Anemia, unspecified; I10 Essential (primary) hypertension; I25.10 Atherosclerotic heart disease of native coronary artery without angina pectoris
CPT/HCPCS: 71045; 80053; 84484; 85025; 93005; 99284; J7030